=== PATIENT | male | born 1945 | race Caucasian/White ===

== ENCOUNTER 2017-11-06 12:28 | Inpatient (IN) | payer MEDICARE, MEDICAID, SELFPAY ==
[2017-11-10 19:21] VITALS: BMI 32.7
[2017-11-11 04:00] VITALS: BP 152/71; PULSE 82; RESP 22; TEMP 36.4; O2SAT 93
--- NOTE | 2017-11-11 07:25 | HMH.DCSUM ---
General - General Admission date: 11/06/17 Discharge date: 11/11/17 HPI HPI: 71 year old male with history of HTN, CAD, presented to the ER after awakening with difficulty speaking and ambulating. Patient would veer to the right when walking. By the time of presentation and completed work-up patient was outside the window for intervention for acute CVA. CT in ER was negative for hemorrhage. Patient was admitted for blood pressure monitoring and therapy evaluation by stroke team. Patient's symptoms did not improve after 24 hours and patient developed difficulty swallowing. Speech therapy recommended feeding tube due to repeated aspiration. On November 08 Dr. Barreto took the patient to the OR and placed a Peg tube. Dietitian was consulted and recommended tube feeds with Jevity at a goal rate of 72 mL's per hour. Tube feeds were started per protocol and patient progressed to goal rate and continue this until discharge. Patient was evaluated by physical therapy as well. Physical therapy felt like the patient would best be served by inpatient rehabilitation. On initial examination on the patient did have some right arm weakness. Right arm and leg weakness improved but patient remained unstable while walking. Patient's blood pressure medications were adjusted. At times patient's blood pressure still remained elevated. Patient was also started on Plavix 75 mg. Patient is a diabetic as well and he remained on metformin but insulin dosing was changed significantly while hospitalized due to hypoglycemia. Care management consult was placed and patient was accepted to [facility] for November 11. Patient's weekend was uneventful. On November 11 patient was transferred to [facility]. Objective Vital signs: Temp Pulse Resp BP Pulse Ox 97.5 F L 82 22 152/71 93 L 11/11/17 04:00 11/11/17 04:00 11/11/17 04:00 11/11/17 04:00 11/11/17 04:00 Results Labs on day of discharge: Labs from last 24 hours 11/10/17 11/10/17 11/10/17 20:13 17:04 06:01 WBC RBC Hgb Hct MCV RDW Plt Count MPV Gran % Gran # Lymphocytes % Monocytes % Eosinophils % Basophils % Lymphocytes # Monocytes # Eosinophils # Basophils # PUBS MCHC Sodium Potassium Chloride Carbon Dioxide BUN Creatinine Estimated Creat Clear Estimated GFR (MDRD) Glucose POC Glucose 193 H D 284 H D 208 H Calcium MCH 11/09/17 11/09/17 11/09/17 20:14 16:47 06:29 WBC RBC Hgb Hct MCV RDW Plt Count MPV Gran % Gran # Lymphocytes % Monocytes % Eosinophils % Basophils % Lymphocytes # Monocytes # Eosinophils # Basophils # PUBS MCHC Sodium Potassium Chloride Carbon Dioxide BUN Creatinine Estimated Creat Clear Estimated GFR (MDRD) Glucose POC Glucose 190 H 217 H 178 H Calcium MCH 11/08/17 11/08/17 11/08/17 19:57 16:30 11:39 WBC RBC Hgb Hct MCV RDW Plt Count MPV Gran % Gran # Lymphocytes % Monocytes % Eosinophils % Basophils % Lymphocytes # Monocytes # Eosinophils # Basophils # PUBS MCHC Sodium Potassium Chloride Carbon Dioxide BUN Creatinine Estimated Creat Clear Estimated GFR (MDRD) Glucose POC Glucose 151 H 176 H 176 H Calcium MCH 11/08/17 11/08/17 11/08/17 08:40 08:40 06:17 WBC 9.6 RBC 4.79 Hgb 14.1 Hct 44.0 MCV 91.9 RDW 14.1 Plt Count 289 MPV 8.2 Gran % 76.2 Gran # 7.3 Lymphocytes % 15.9 Monocytes % 5.1 Eosinophils % 2.3 Basophils % 0.6 Lymphocytes # 1.5 Monocytes # 0.5 Eosinophils # 0.2 Basophils # 0.1 PUBS MCHC 32.1 Sodium 141 Potassium 4.1 Chloride 107 Carbon Dioxide 27 BUN 13 Creatinine 0.9 E
--- NOTE | 2017-11-11 07:36 | P.DS_ITS ---
General - General Admission date: 11/06/17 Discharge date: 11/11/17 HPI HPI: 71 year old male with history of HTN, CAD, presented to the ER after awakening with difficulty speaking and ambulating. Patient would veer to the right when walking. By the time of presentation and completed work-up patient was outside the window for intervention for acute CVA. CT in ER was negative for hemorrhage. Patient was admitted for blood pressure monitoring and therapy evaluation by stroke team. Patient's symptoms did not improve after 24 hours and patient developed difficulty swallowing. Speech therapy recommended feeding tube due to repeated aspiration. On November 08 Dr. Barreto took the patient to the OR and placed a Peg tube. Dietitian was consulted and recommended tube feeds with Jevity at a goal rate of 72 mL's per hour. Tube feeds were started per protocol and patient progressed to goal rate and continue this until discharge. Patient was evaluated by physical therapy as well. Physical therapy felt like the patient would best be served by inpatient rehabilitation. On initial examination on the patient did have some right arm weakness. Right arm and leg weakness improved but patient remained unstable while walking. Patient's blood pressure medications were adjusted. At times patient's blood pressure still remained elevated. Patient was also started on Plavix 75 mg. Patient is a diabetic as well and he remained on metformin but insulin dosing was changed significantly while hospitalized due to hypoglycemia. Care management consult was placed and patient was accepted to [facility] for November 11. Patient's weekend was uneventful. On November 11 patient was transferred to [facility]. Objective Vital signs: Temp Pulse Resp BP Pulse Ox 97.5 F L 82 22 152/71 93 L 11/11/17 04:00 11/11/17 04:00 11/11/17 04:00 11/11/17 04:00 11/11/17 04:00 Results Labs on day of discharge: Labs from last 24 hours 11/10/17 11/10/17 11/10/17 20:13 17:04 06:01 WBC RBC Hgb Hct MCV RDW Plt Count MPV Gran % Gran # Lymphocytes % Monocytes % Eosinophils % Basophils % Lymphocytes # Monocytes # Eosinophils # Basophils # PUBS MCHC Sodium Potassium Chloride Carbon Dioxide BUN Creatinine Estimated Creat Clear Estimated GFR (MDRD) Glucose POC Glucose 193 H D 284 H D 208 H Calcium MCH 11/09/17 11/09/17 11/09/17 20:14 16:47 06:29 WBC RBC Hgb Hct MCV RDW Plt Count MPV Gran % Gran # Lymphocytes % Monocytes % Eosinophils % Basophils % Lymphocytes # Monocytes # Eosinophils # Basophils # PUBS MCHC Sodium Potassium Chloride Carbon Dioxide BUN Creatinine Estimated Creat Clear Estimated GFR (MDRD) Glucose POC Glucose 190 H 217 H 178 H Calci
--- NOTE | 2017-11-11 07:42 | PC.NURSE ---
C/O ABDOMINAL PAIN, ADMINISTERED PRN MEDICATION PER JAN FOR PAIN, ON REASSESSMENT, PT NOTED SLEEPING. SLURRED SPEECH NOTED, PERRLA NOTED, STOCK OR DELIVERY CLERK EQUAL, NO FACIAL DEFICITS NOTED. ASSISTANCE X1 REQUIRED FOR ADLS. PT IS NONCOMPLIANT AT TIMES, SAFETY DEVICE APPLIED T/O SHIFT. PT REMAINED A&OX3 T/O SHIFT. PEG TUBE NOTED IN LUQ, DRESSING CDI, NO S/S OF INFECTION. RESIDUALS PERFORMED Q4H T/O SHIFT. 2000 RESIDUAL: 0 ML; 0000 RESIDUAL: 0 ML; 0400 RESIDUAL 25 ML. HOB REMAINED ELEVATED >45 DEGREE ANGLE. VSS. WILL CONTINUE TO MONITOR.
--- NOTE | 2017-11-11 08:00 | PC.NURSE ---
ORAL CARE PERFORMED Q2H.
[2017-11-11 08:40] VITALS: PULSE 80
[2017-11-11 09:00] VITALS: BP 201/77; PULSE 98; RESP 20
[2017-11-12 10:18] LABS: POC Glucose,Bedside 241 mg/dL
== END 2017-11-11 15:40 | DRG 65 ==
PROVIDERS: Admitting Provider Family Medicine; Emergency Provider Emergency Medicine; Visit Provider Family Medicine
DX: G81.94 Hemiplegia, unspecified affecting left nondominant side (principal); E11.9 Type 2 diabetes mellitus without complications; I69.322 Dysarthria following cerebral infarction; I63.9 Cerebral infarction, unspecified; I69.391 Dysphagia following cerebral infarction; I69.393 Ataxia following cerebral infarction; I10 Essential (primary) hypertension; Z79.4 Long term (current) use of insulin; Z95.5 Presence of coronary angioplasty implant and graft; R47.89 Other speech disturbances
CPT/HCPCS: 43246; 36415; 70450; 71020; 72040; 74230; 80048; 80053; 80162; 82009; 82550; 82553; 82947; 82962; 83036; 84484; 85025; 92507; 92610; 92611; 93005; 93041; 93306; 93880; 94760; 96105; 97116; 97162; 97165; 97535; 99284; J2270

== ENCOUNTER 2018-05-13 14:43 | Inpatient (IN) ==
[2018-05-13 17:04] LABS: Basophils % 0.5 % (0.1-2.0); Eosinophils # 0.3 K/mm3 (0.0-0.4); Eosinophils % 4.4 % (0.1-12.0); Hematocrit 36.5 % (42.0-52.0); Hemoglobin 10.7 g/dL (14.1-18.0); Lymphocytes # 2.1 K/mm3 (0.7-4.5); Lymphocytes % 28.7 K/mm3 (10-50); Mean Corpuscular HGB Conc 29.4 g/dL (31.8-35.4); Mean Corpuscular Hemoglobin 24.9 pg (27.0-31.2); Mean Corpuscular Volume 84.6 fl (80-94); Mean Platelet Volume 8.1 fl (7.4-10.4); Monocytes # 0.4 K/mm3 (0.1-1.0); Monocytes % 5.8 % (1.7-9.3); Neutrophils # 4.5 K/mm3 (1.8-7.8); Neutrophils % 60.7 % (37.0-80.0); Platelet Count 368 K/mm3 (142-424); Red Blood Count 4.31 M/mm3 (4.60-6.20); Red Cell Distribution Width 15.1 % (11.5-17.5); White Blood Count 7.4 K/mm3 (4.8-10.8)
[2018-05-13 17:16] LABS: Albumin Level 3.1 gm/dL (3.4-5.0); Albumin/Globulin Ratio 0.8 (1.1-1.8); Anion Gap 10.8 mEq/L (5-15); Bilirubin,Total 0.4 mg/dL (0.2-1.0); Calcium 8.6 mg/dL (8.5-10.1); Globulin 3.9 gm/dl (1.3-3.2); Potassium 3.8 mmoL/L (3.5-5.1)
--- NOTE | 2018-05-14 07:15 | Progress Note ---
Internal Medicine - PN: Subj *Date: 05/14/18 *Time: 07:13 Interval history: Patient was admitted yesterday afternoon with worsening dysphagia. Inability to swallow even liquids had developed over the last 3-4 days. Patient denies any other symptoms to suggest recurrence of stroke. He was admitted and started on D5 half-normal saline with potassium. He is also being given Levsin for oral secretions. Exam Vital signs and Labs for Last 24 Hours: Temp Pulse Resp BP Pulse Ox 97.9 F 74 16 123/59 94 L 05/14/18 04:00 05/14/18 04:00 05/14/18 04:00 05/14/18 04:00 05/14/18 04:00 Laboratory Results - last 24 hr 05/13/18 16:44: POC Glucose 131 H 05/13/18 16:50: Sodium 143, Potassium 3.8, Chloride 108 H, Carbon Dioxide 28, Anion Gap 10.8, BUN 16, Creatinine 1.04, Estimated Creat Clear 80, Estimated GFR 70, Est GFR ( Amer) 85, Glucose 155 H, Calcium 8.6, Total Bilirubin 0.4, AST 18, ALT 15, Alkaline Phosphatase 82, Total Protein 7.0, Albumin 3.1 L, Globulin 3.9 H, Albumin/Globulin Ratio 0.8 L 05/13/18 16:50: WBC 7.4, RBC 4.31 L, Hgb 10.7 L, Hct 36.5 L, MCV 84.6, MCH 24.9 L, MCHC 29.4 L, RDW 15.1, Plt Count 368, MPV 8.1, Neut % (Auto) 60.7, Lymph % ( Auto) 28.7, Cobb % (Auto) 5.8, Eos % (Auto) 4.4, Baso % (Auto) 0.5, Neut # (Auto ) 4.5, Lymph # (Auto) 2.1, Cobb # (Auto) 0.4, Eos # (Auto) 0.3, Baso # (Auto) 0.0 05/13/18 20:24: POC Glucose 166 H 05/14/18 06:04: POC Glucose 188 H I & O for Last 24 hours: Intake & Output 05/11/18 05/12/18 05/13/18 05/14/18 11:59 11:59 11:59 11:59 Intake Total 0 / 0 Output Total 475 / 475 Balance -475 / -475 Weight 190 lb Narrative: He appears at baseline. His speech is unchanged. Lungs are clear to auscultation. Heart has a regular rate and rhythm. Abdomen is soft, nontender , nondistended. 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 Continue IV fluids 2. Surgical consult for PEG tube 3. CT head this morning to rule out recurrent stroke
[2018-05-14 07:21] LABS: Basophils % 0.6 % (0.1-2.0); Eosinophils # 0.3 K/mm3 (0.0-0.4); Eosinophils % 5.4 % (0.1-12.0); Hematocrit 36.3 % (42.0-52.0); Hemoglobin 10.5 g/dL (14.1-18.0); Lymphocytes # 1.8 K/mm3 (0.7-4.5); Lymphocytes % 29.9 K/mm3 (10-50); Mean Corpuscular Hemoglobin 24.6 pg (27.0-31.2); Mean Corpuscular Volume 85.1 fl (80-94); Mean Platelet Volume 7.9 fl (7.4-10.4); Monocytes # 0.4 K/mm3 (0.1-1.0); Monocytes % 6.6 % (1.7-9.3); Neutrophils # 3.4 K/mm3 (1.8-7.8); Neutrophils % 57.5 % (37.0-80.0); Platelet Count 306 K/mm3 (142-424); Red Blood Count 4.27 M/mm3 (4.60-6.20); Red Cell Distribution Width 15.1 % (11.5-17.5)
[2018-05-14 07:39] LABS: Albumin Level 2.9 gm/dL (3.4-5.0); Albumin/Globulin Ratio 0.8 (1.1-1.8); Anion Gap 10.4 mEq/L (5-15); Bilirubin,Total 0.4 mg/dL (0.2-1.0); Calcium 8.6 mg/dL (8.5-10.1); Globulin 3.7 gm/dl (1.3-3.2); Potassium 3.4 mmoL/L (3.5-5.1); Total Protein,Serum 6.6 gm/dL (6.4-8.2)
--- NOTE | 2018-05-14 09:19 | Pharmacy Consult Notes ---
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
--- NOTE | 2018-05-15 07:15 | Progress Note ---
Internal Medicine - PN: Subj *Date: 05/15/18 *Time: 07:13 Interval history: No change in patient's condition over the last 24 hours. He remains n.p.o. Surgery has been consulted and in discussing his case with him yesterday he needs the Plavix to be adequately out of his system before proceeding with PEG tube placement. An NG tube is going to be placed today for tube feedings. We will investigate the possibility of discharging the patient to assisted facility and then returning next week for definitive placement of PEG tube. If this cannot be accomplished and the patient will be kept in the hospital until Plavix is adequately out of his system which at this point would estimated to be May 18. Exam Vital signs and Labs for Last 24 Hours: Temp Pulse Resp BP Pulse Ox 98.1 F 87 20 150/85 95 05/15/18 04:56 05/15/18 04:56 05/15/18 04:56 05/15/18 04:56 05/15/18 04:56 Laboratory Results - last 24 hr 05/14/18 06:35: WBC 6.0, RBC 4.27 L, Hgb 10.5 L, Hct 36.3 L, MCV 85.1, MCH 24.6 L, MCHC 29.0 L, RDW 15.1, Plt Count 306, MPV 7.9, Neut % (Auto) 57.5, Lymph % ( Auto) 29.9, Mcclain % (Auto) 6.6, Eos % (Auto) 5.4, Baso % (Auto) 0.6, Neut # (Auto ) 3.4, Lymph # (Auto) 1.8, Mcclain # (Auto) 0.4, Eos # (Auto) 0.3, Baso # (Auto) 0.0 05/14/18 06:35: Sodium 142, Potassium 3.4 L, Chloride 108 H, Carbon Dioxide 27, Anion Gap 10.4, BUN 10 D, Creatinine 0.82 D, Estimated Creat Clear 83, Estimated GFR 93, Est GFR ( Amer) 112 D, Glucose 196 H D, Calcium 8.6, Total Bilirubin 0.4, AST 16, ALT 14, Alkaline Phosphatase 78, Total Protein 6.6 , Albumin 2.9 L, Globulin 3.7 H, Albumin/Globulin Ratio 0.8 L 07/04/18 11:08: POC Glucose 171 H 07/04/18 16:25: POC Glucose 151 H 05/14/18 20:16: POC Glucose 163 H 05/15/18 06:22: POC Glucose 191 H I & O for Last 24 hours: Intake & Output 05/12/18 05/13/18 05/14/18 05/15/18 11:59 11:59 11:59 11:59 Intake Total 0 / 0 2254 / 2254 Output Total 475 / 475 2945 / 2945 Balance -475 / -475 -691 / -691 Weight 190 lb 188 lb 6 oz - Constitutional no acute distress Assessment and Plan (1) 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 Place NG tube with nutrition consult to begin tube feedings via NG.
--- NOTE | 2018-05-15 09:16 | Consult Report ---
*Admission Date: 05/13/18 *Chief complaint: Feeding difficulty *History of present illness: This is a 72-year-old gentleman seen in consultation from Dr. Avila for likely feeding tube placement. He is status post CVA and presents with increased feeding difficulty. He had a PEG placed after his stroke; however, he improved with regard to swallowing and was able to tolerate p.o. feeding. His PEG was subsequently removed. Over the past few days he has had increased difficulty swallowing and has "failed his swallowing study". Review of Systems - *Cardiovascular Denies chest pain - Hematologic/Lymphatic Denies easy bleeding [facility] History Medical History: Reports:: Coronary Artery Disease, Diabetes Mellitus Type 2, Heart Murmur, Hyperlipidemia, MRSA Denies:: Cancer, Diabetes Mellitus Type 1 Other Medical History: Reports: Arthritis (rheumatoid), Hoarseness Laterality Cases: Bilateral: Arthroscopy Shoulder Other Surgeries: Yes: Cardiac Catheterization, Coronary Stent Amputation: No Fractures: No - *Social History Educational Level: Completed High School Smoking Status: Current every day smoker Tobacco Type: cigarettes # Packs/Day (cigarettes): 1 Alcohol Intake: former Occupational Status: retired Housing: apartment Household Members: none - Psychiatric History Expresses thoughts of harming self/others: None Suicide Plan Description: No Plan *Family Hx:: Anemia, Coronary Artery Disease, Diabetes, Heart Attack, Hyperlipidemia, Hypertension Meds Home Medications Medication Instructions Recorded Confirmed Type Albuterol Sulfate [Proventil-HFA 2 puffs INHALATION Q4HP PRN 11/10/17 05/13/18 History 90mcg/puff Inh] Budesonide/Formoterol Fumarate 2 puffs INHALATION BID 11/10/17 05/13/18 History [Symbicort 160-4.5 Mcg Inhaler] Fenofibrate Nanocrystallized 145 mg PO DAILY 11/10/17 05/13/18 History [Fenofibrate] Metformin HCl [Metformin 500mg 1,000 mg PO BID 11/10/17 05/13/18 History Tablet] Oxycodone HCl/Acetaminophen 1 tab PO QID 11/10/17 05/13/18 History [Percocet 10-325 mg Tab] Carvedilol [Carvedilol 25mg Tab] 25 mg PO BID 11/11/17 05/13/18 History Amlodipine Besylate [Norvasc 5mg 5 mg PO BID 05/13/18 05/13/18 History tablet] Clopidogrel Bisulfate [Plavix 75mg 75 mg PO DAILY 05/13/18 05/14/18 History Tab] Digoxin 0.0625 mg PO DAILY 05/13/18 05/13/18 History Esomeprazole Magnesium 40 mg PO DAILY 05/13/18 05/13/18 History Fluticasone Propionate [Flonase 1 spray NOSTRIL-B DAILY 05/13/18 05/13/18 History 50mcg nasal spray 16gm] Lisinopril [Lisinopril 20mg Tab] 20 mg PO BID 05/13/18 05/13/18 History raNITIdine HCl [Ranitidine HCl] 150 mg PO BID PRN 05/13/18 05/13/18 History Gabapentin [Gabapentin 300mg Cap] 300 mg PO TID 05/14/18 05/14/18 History Insulin Detemir [Levemir 10 units SQ DAILY 05/14/18 05/14/18 History 100units/mL 3mL flexpen] Allergies Allergy/AdvReac Type Severity Reaction Status Date / Time diclofenac [From VOLTAREN] Allergy Unknown I-RASH Verified 05/13/18 16:29 rosuvastatin [From CRESTOR] Allergy Unknown I-RASH Verified 05/13/18 16:29 Exam Vital signs and Labs for Last 24 Hours: Temp Pulse Resp BP Pulse Ox 97.9 F 101 H 20 149/84 94 L 05/15/18 07:33 05/15/18 07:33 05/15/18 07:33 05/15/18 07:33 05/15/18 07:33 Laboratory Results - last 24 hr 05/14/18 11:08: POC Glucose 171 H 05/14/18 16:25: POC Glucose 151 H 05/14/18 20:16: POC Glucose 163 H 05/15/18 06:22: POC Glucose 191 H I & O for Last 24 hours: Intake & Output 05/12/18 05/13/18 05/14/18 05/15/18 11:59 11:59 11:59 11:59 Intake Total 0 / 0 2254 / 2254 Output Total 475 / 475 2945 / 2945 Balance -475 / -475 -691 / -691 Weight 190 lb 188 lb 6 oz - Constitutional no acute distress - *Routine Respiratory Exam Absent: respiratory distress - *Routine Abdominal Exam Present: soft. 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
--- NOTE | 2018-05-16 06:43 | Progress Note ---
Internal Medicine - PN: Subj *Date: 05/16/18 *Time: 06:42 Interval history: Patient's only complaint is his NG tube which we have used to start some tube feedings. He has pulled his NG out this morning. According to nursing staff this was done purposefully. Exam Vital signs and Labs for Last 24 Hours: Temp Pulse Resp BP Pulse Ox 98.0 F 72 16 154/81 93 L 05/16/18 04:00 05/16/18 04:00 05/16/18 04:00 05/16/18 04:00 05/16/18 04:00 Laboratory Results - last 24 hr 05/15/18 11:01: POC Glucose 196 H 05/15/18 16:39: POC Glucose 159 H 05/15/18 21:21: POC Glucose 177 H I & O for Last 24 hours: Intake & Output 05/13/18 05/14/18 05/15/18 05/16/18 11:59 11:59 11:59 11:59 Intake Total 0 / 0 2254 / 2254 1362 / 1362 Output Total 475 / 475 2945 / 2945 1475 / 1475 Balance -475 / -475 -691 / -691 -113 / -113 Weight 190 lb 188 lb 6 oz - Constitutional no acute distress - *Routine Respiratory Exam Present: CTA bilaterally - *Routine Cardiovascular Exam Present: RRR Assessment and Plan (1) 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 We are waiting for Plavix to clear his system to proceed with placement of PEG tube.
--- NOTE | 2018-05-16 06:50 | Progress Note ---
Subjective Patient reports: other (unable to maintain feeding tube in place) Exam Vital signs and Labs for Last 24 Hours: Temp Pulse Resp BP Pulse Ox 98.0 F 72 16 154/81 93 L 05/16/18 04:00 05/16/18 04:00 05/16/18 04:00 05/16/18 04:00 05/16/18 04:00 Laboratory Results - last 24 hr 05/15/18 11:01: POC Glucose 196 H 05/15/18 16:39: POC Glucose 159 H 05/15/18 21:21: POC Glucose 177 H 05/16/18 06:29: POC Glucose 174 H I & O for Last 24 hours: Intake & Output 05/13/18 05/14/18 05/15/18 05/16/18 11:59 11:59 11:59 11:59 Intake Total 0 / 0 2254 / 2254 1362 / 1362 Output Total 475 / 475 2945 / 2945 1925 / 1925 Balance -475 / -475 -691 / -691 -563 / -563 Weight 190 lb 188 lb 6 oz - Constitutional no acute distress - *Routine Respiratory Exam Absent: respiratory distress Progress Note: A&P (1) 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
--- NOTE | 2018-05-17 06:59 | Progress Note ---
Internal Medicine - PN: Subj *Date: 05/17/18 *Time: 06:57 Interval history: Patient has no complaints this morning. He is scheduled for placement of PEG tube later this morning. Exam Vital signs and Labs for Last 24 Hours: Temp Pulse Resp BP Pulse Ox 97.4 F L 89 20 144/79 95 05/17/18 03:40 05/17/18 03:40 05/17/18 03:40 05/17/18 03:40 05/17/18 03:40 Laboratory Results - last 24 hr 05/16/18 11:09: POC Glucose 164 H 05/16/18 16:05: POC Glucose 117 H 05/16/18 21:31: POC Glucose 167 H I & O for Last 24 hours: Intake & Output 05/14/18 05/15/18 05/16/18 05/17/18 11:59 11:59 11:59 11:59 Intake Total 0 / 0 2254 / 2254 1362 / 1362 3017 / 3017 Output Total 475 / 475 2945 / 2945 1925 / 1925 550 / 550 Balance -475 / -475 -691 / -691 -563 / -563 2467 / 2467 Weight 190 lb 188 lb 6 oz 188 lb Narrative: He appears well. Heart has a regular rate and rhythm. Lungs are clear. 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 Start tube feeds later today. Once he is at goal rate will anticipate discharge to assisted facility
--- NOTE | 2018-05-17 07:12 | Progress Note ---
Subjective Patient reports: no new complaints Exam Vital signs and Labs for Last 24 Hours: Temp Pulse Resp BP Pulse Ox 97.4 F L 89 20 144/79 95 05/17/18 03:40 05/17/18 03:40 05/17/18 03:40 05/17/18 03:40 05/17/18 03:40 Laboratory Results - last 24 hr 05/16/18 11:09: POC Glucose 164 H 05/16/18 16:05: POC Glucose 117 H 05/16/18 21:31: POC Glucose 167 H I & O for Last 24 hours: Intake & Output 05/14/18 05/15/18 05/16/18 05/17/18 11:59 11:59 11:59 11:59 Intake Total 0 / 0 2254 / 2254 1362 / 1362 3017 / 3017 Output Total 475 / 475 2945 / 2945 1925 / 1925 550 / 550 Balance -475 / -475 -691 / -691 -563 / -563 2467 / 2467 Weight 190 lb 188 lb 6 oz 188 lb - Constitutional no acute distress - *Routine Respiratory Exam Absent: respiratory distress - *Routine Abdominal Exam Present: soft Progress Note: A&P (1) 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
--- NOTE | 2018-05-17 08:34 | Procedure Note ---
- Procedure: Date: 05/17/18 Procedure Performed:: Percutaneous endoscopic gastrostomy tube placement Indications:: Feeding difficulty status post stroke Performing Provider:: Gagandeep Barreto MD Referring Provider:: Dr. Avila Sedation:: MAC Procedure:: After informed consent was obtained, the patient was taken to the endoscopy suite. Monitored anesthesia care ensued and he was maintained in a supine position. The gastroscope was advanced. The stomach was entered. After appropriate insufflation, transillumination and impulse were appreciated. The left upper quadrant was prepped and draped in a sterile fashion. After infiltration of local anesthetic a small incision was made at the site of prior gastrostomy tube. A guidewire was placed under direct visualization. The snare was then retrieved and attached to the tube. The tube was then drawn through in an antegrade fashion and secured at 3 cm. The gastroscope was readvanced. The bumper was in good position. No active bleeding was noted. Easy rotation confirmed. The tube was maintained to drainage and an abdominal binder was secured. Findings:: Secured at 3 cm Recommendations:: Abdominal binder Tube to drain bag Tube to be utilized for medications after 4 hours and for tube feeds after 12 hours Complications:: No immediate Estimated blood obtained (mL): 5
--- NOTE | 2018-05-17 09:18 | Progress Note ---
[facility] Anesthesia Checklist - Patient Identification Patient Identification: Arm Band - Structural Data Admitted From: Inpatient Planned Operative Procedure/s: PEG tube placement Consent for Planned Operative Procedure(s) Verified: Yes Verified Documents: Surgical Consent, History and Physical - NPO Status Verified Time NPO: 00:00 - Additional verifications Anesthesia Reactions: No - Airway Assessment C-Spine Mobility Assessed: Yes (mp3) TMJ Mobility Assessed: Yes Dentition: Poor Dentition - Neurological Assessment Level of Consciousness: Awake, Alert - Anesthesia Plan Anesthesia Risk discussed: Yes Anesthesia Plan: Verified ASA Class: III Anesthesia Type: MAC [facility] Anesthesia HX I have reviewed the patient's past medical history: Yes Medical History: Reports:: Coronary Artery Disease, Diabetes Mellitus Type 2, Heart Murmur, Hyperlipidemia, MRSA Denies:: Cancer, Diabetes Mellitus Type 1 Other Medical History: Reports: Arthritis (rheumatoid), Hoarseness Laterality Cases: Bilateral: Arthroscopy Shoulder Other Surgeries: Yes: Cardiac Catheterization, Coronary Stent Amputation: No Fractures: No *Family Hx:: Anemia, Coronary Artery Disease, Diabetes, Heart Attack, Hyperlipidemia, Hypertension
--- NOTE | 2018-05-18 06:48 | Progress Note ---
Internal Medicine - PN: Subj *Date: 05/18/18 *Time: 06:47 Interval history: Patient has no complaints this morning. Attempts to get tube feeds started have stalled after patient had high residuals. Currently tube feedings are on hold and will be restarted within a few hours. Patient denies any significant changes in how he feels. Pain is being controlled with intravenous morphine. Exam Vital signs and Labs for Last 24 Hours: Temp Pulse Resp BP Pulse Ox 97.6 F 85 20 153/77 93 L 05/18/18 04:00 05/18/18 04:00 05/18/18 04:00 05/18/18 04:00 05/18/18 04:00 Laboratory Results - last 24 hr 05/17/18 06:07: POC Glucose 177 H 05/17/18 11:17: POC Glucose 206 H 05/17/18 16:09: POC Glucose 168 H 05/17/18 20:03: POC Glucose 183 H 05/18/18 05:02: POC Glucose 219 H I & O for Last 24 hours: Intake & Output 05/15/18 05/16/18 05/17/18 05/18/18 11:59 11:59 11:59 11:59 Intake Total 2254 / 2254 1362 / 1362 3017 / 3017 3724 / 3724 Output Total 2945 / 2945 1925 / 1925 550 / 550 1025 / 1025 Balance -691 / -691 -563 / -563 2467 / 2467 2699 / 2699 Weight 188 lb 6 oz 188 lb 191 lb Narrative: He is in no distress. Lungs are clear. Heart has regular rate and rhythm. 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 If unsuccessful Reglan will be added as a prokinetic agent
--- NOTE | 2018-05-18 07:41 | Progress Note ---
Subjective Patient reports: other (feels "fine") Exam Vital signs and Labs for Last 24 Hours: Temp Pulse Resp BP Pulse Ox 97.6 F 85 20 153/77 93 L 05/18/18 04:00 05/18/18 04:00 05/18/18 04:00 05/18/18 04:00 05/18/18 04:00 Laboratory Results - last 24 hr 05/17/18 06:07: POC Glucose 177 H 05/17/18 11:17: POC Glucose 206 H 05/17/18 16:09: POC Glucose 168 H 05/17/18 20:03: POC Glucose 183 H 05/18/18 05:02: POC Glucose 219 H I & O for Last 24 hours: Intake & Output 05/15/18 05/16/18 05/17/18 05/18/18 11:59 11:59 11:59 11:59 Intake Total 2254 / 2254 1362 / 1362 3017 / 3017 3724 / 3724 Output Total 2945 / 2945 1925 / 1925 550 / 550 1025 / 1025 Balance -691 / -691 -563 / -563 2467 / 2467 2699 / 2699 Weight 188 lb 6 oz 188 lb 191 lb - Constitutional no acute distress - *Routine Abdominal Exam Present: soft (PEG stable at 3cm. Good rotation. No active bleeding. 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 TFs as per primary service Current Visit: Yes
--- NOTE | 2018-05-19 06:31 | Progress Note ---
Subjective Patient reports: no new complaints, other (at TF rate goal (nsg checking residual)...no nausea at this time) Exam Vital signs and Labs for Last 24 Hours: Temp Pulse Resp BP Pulse Ox 98.3 F 68 20 132/61 93 L 05/19/18 04:00 05/19/18 04:00 05/19/18 04:00 05/19/18 04:00 05/19/18 04:00 Laboratory Results - last 24 hr 05/18/18 11:11: POC Glucose 196 H 05/18/18 16:34: POC Glucose 192 H 05/18/18 21:12: POC Glucose 137 H I & O for Last 24 hours: Intake & Output 05/16/18 05/17/18 05/18/18 05/19/18 11:59 11:59 11:59 11:59 Intake Total 1362 / 1362 3017 / 3017 3724 / 3724 2578 / 2578 Output Total 1925 / 1925 550 / 550 1325 / 1325 975 / 975 Balance -563 / -563 2467 / 2467 2399 / 2399 1603 / 1603 Weight 188 lb 191 lb 192 lb 8 oz - Constitutional no acute distress - *Routine Respiratory Exam Absent: respiratory distress - *Routine Abdominal Exam Present: soft Progress Note: A&P (1) Dysphagia as late effect of cerebral aneurysm Status: Acute Assessment and plan: continue TFs as per primary service Current Visit: Yes
--- NOTE | 2018-05-19 07:16 | Progress Note ---
Internal Medicine - PN: Subj *Date: 05/19/18 *Time: 07:14 Interval history: Patient had his tube feeds advanced to his goal rate of 79 mL's per hour and is tolerating this at this time. Care management is awaiting word on prison facility placement. Exam Vital signs and Labs for Last 24 Hours: Temp Pulse Resp BP Pulse Ox 98.3 F 68 20 132/61 93 L 05/19/18 04:00 05/19/18 04:00 05/19/18 04:00 05/19/18 04:00 05/19/18 04:00 Laboratory Results - last 24 hr 05/18/18 11:11: POC Glucose 196 H 05/18/18 16:34: POC Glucose 192 H 05/18/18 21:12: POC Glucose 137 H 05/19/18 06:22: POC Glucose 191 H I & O for Last 24 hours: Intake & Output 05/16/18 05/17/18 05/18/18 05/19/18 11:59 11:59 11:59 11:59 Intake Total 1362 / 1362 3017 / 3017 3724 / 3724 2578 / 2578 Output Total 1925 / 1925 550 / 550 1325 / 1325 1225 / 1225 Balance -563 / -563 2467 / 2467 2399 / 2399 1353 / 1353 Weight 188 lb 191 lb 192 lb 8 oz - Constitutional no acute distress Assessment and Plan (1) Dysphagia as late effect of cerebral aneurysm Current visit: Yes Status: Acute Category: Medical Code(s): I69.891 - Dysphagia following other cerebrovascular disease - Assessment and plan all Dx Assessment and Plan for all problems:: As long as patient is able to tolerate his tube feeds at goal rate today in nursing facility has been secured for the patient plan will be to discharge tomorrow
--- NOTE | 2018-05-20 07:24 | Discharge Summary ---
General - General Admission date:: 05/13/18 Discharge date: 05/20/18 HPI HPI: This is a 72-year-old gentleman seen in consultation from Dr. Avila for likely feeding tube placement. He is status post CVA and presents with increased feeding difficulty. He had a PEG placed after his stroke; however, he improved with regard to swallowing and was able to tolerate p.o. feeding. His PEG was subsequently removed. Over the past few days he has had increased difficulty swallowing and has "failed his swallowing study". Hospital Course Hospital Course: Patient was admitted and Plavix was held. Once Plavix had adequately been cleared from his system patient underwent placement of PEG tube by Dr. Treadwell on May 17. Postoperatively tube feeds were started. The first 24 hours of tube feeds patient had high residuals even at low volumes and tube feeds were frequently held. On about 2 days postop patient began tolerating tube feeds better with little to no residual until he was advanced to his goal rate on Glucerna of 79 mL's per hour. Once patient was tolerating tube feeds search for placement was begun. Patient was accepted by [facility]. Repeat CCCT scan was negative for recurrent or enlarging infarct. Mental Status: average Rehab Potential: fair Prognosis: fair Objective Vital signs: Temp Pulse Resp BP Pulse Ox 97.8 F 68 18 177/74 92 L 05/20/18 04:00 05/20/18 04:00 05/20/18 04:00 05/20/18 04:00 05/20/18 04:00 Results Labs on day of discharge: Labs from last 24 hours 05/20/18 05/19/18 05/19/18 06:17 20:36 16:24 POC Glucose 204 H 167 H 185 H 05/19/18 10:56 POC Glucose 194 H DS: Diagnosis - Discharge Diagnosis (1) Dysphagia as late effect of cerebral aneurysm Status: Acute Discharge Plan - Patient Discharge Instructions ACTIVITY: Continue current activity DIET: continue same diet, NPO - Follow up Plan Disposition: [facility] Home Medications: Home Medications Medication Instructions Recorded Confirmed Type Albuterol Sulfate [Proventil-HFA 2 puffs INHALATION Q4HP PRN 11/10/17 05/13/18 History 90mcg/puff Inh] Budesonide/Formoterol Fumarate 2 puffs INHALATION BID 11/10/17 05/13/18 History [Symbicort 160-4.5 Mcg Inhaler] Fenofibrate Nanocrystallized 145 mg PO DAILY 11/10/17 05/13/18 History [Fenofibrate] Metformin HCl [Metformin 500mg 1,000 mg PO BID 11/10/17 05/13/18 History Tablet] Oxycodone HCl/Acetaminophen 1 tab PO QID 11/10/17 05/13/18 History [Percocet 10-325 mg Tab] Carvedilol [Carvedilol 25mg Tab] 25 mg PO BID 11/11/17 05/13/18 History Amlodipine Besylate [Norvasc 5mg 5 mg PO BID 05/13/18 05/13/18 History tablet] Clopidogrel Bisulfate [Plavix 75mg 75 mg PO DAILY 05/13/18 05/14/18 History Tab] Digoxin 0.0625 mg PO DAILY 05/13/18 05/13/18 History Esomeprazole Magnesium 40 mg PO DAILY 05/13/18 05/13/18 History Fluticasone Propionate [Flonase 1 spray NOSTRIL-B DAILY 05/13/18 05/13/18 History 50mcg nasal spray 16gm] Lisinopril [Lisinopril 20mg Tab] 20 mg PO BID 05/13/18 05/13/18 History raNITIdine HCl [Ranitidine HCl] 150 mg PO BID PRN 05/13/18 05/13/18 History Gabapentin [Gabapentin 300mg Cap] 300 mg PO TID 05/14/18 05/14/18 History Insulin Detemir [Levemir 10 units SQ DAILY 05/14/18 05/14/18 History 100units/mL 3mL flexpen] Prescriptions/Medication Reconciliation: New Oxycodone HCl/Acetaminophen [Oxycodone W/Apap 325mg Tablet] 1 each PO QID # 120 tab Continue Fenofibrate Nanocrystallized [Fenofibrate] 145 mg PO DAILY Oxycodone HCl/Acetaminophen [Percocet 10-325 mg Tab] 1 tab PO QID Budesonide/Formoterol Fumarate [Symbicort 160-4.5 Mcg Inhaler] 2 puffs INHALATION BID Metformin HCl [Metformin 500mg Tablet] 1,000 mg PO BID Carvedilol [Carvedilol 25mg Tab] 25 mg PO BID Digoxin 0.0625 mg PO DAILY Esomeprazole Magnesium 40 mg PO DAILY Lisinopril [Lisinopril 20mg Tab] 20 mg PO BID raNITIdine HCl [Ranitidine HCl] 150 mg PO BID PRN PRN Reason: GERD Gabapentin [Gabapentin 300mg Cap] 300 mg PO TID Insulin Detemir [Levemir 100units/mL 3mL flexpen] 10 units SQ DAILY Albuterol Sulfate [Proventil-HFA 90mcg/puff Inh] 2 puffs INHALATION Q4HP PRN PRN Reason: Shortness Of Breath Amlodipine Besylate [Norvasc 5mg tablet] 5 mg PO BID Fluticasone Propionate [Flonase 50mcg nasal spray 16gm] 1 spray NOSTRIL-B DAILY Clopidogrel Bisulfate [Plavix 75mg Tab] 75 mg PO DAILY
--- NOTE | 2018-05-20 08:06 | Progress Note ---
Subjective Patient reports: no new complaints Exam Vital signs and Labs for Last 24 Hours: Temp Pulse Resp BP Pulse Ox 98.0 F 65 18 127/59 95 05/20/18 07:26 05/20/18 07:26 05/20/18 07:26 05/20/18 07:26 05/20/18 07:26 Laboratory Results - last 24 hr 05/19/18 10:56: POC Glucose 194 H 05/19/18 16:24: POC Glucose 185 H 05/19/18 20:36: POC Glucose 167 H 05/20/18 06:17: POC Glucose 204 H I & O for Last 24 hours: Intake & Output 05/17/18 05/18/18 05/19/18 05/20/18 11:59 11:59 11:59 11:59 Intake Total 3017 / 3017 3724 / 3724 2578 / 2578 1305 / 1305 Output Total 550 / 550 1325 / 1325 1225 / 1225 1520 / 1520 Balance 2467 / 2467 2399 / 2399 1353 / 1353 -215 / -215 Weight 188 lb 191 lb 192 lb 8 oz 193 lb 6 oz - Constitutional no acute distress - *Routine Abdominal Exam Present: soft Comments: PEG stable and without sign of bleeding/infection Progress Note: A&P (1) 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 Current Visit: Yes
[2018-05-20 15:27] VITALS: BP 134/70
== END 2018-05-20 17:06 ==
LOC: 2ND 14:43
PROVIDERS: ADMIT Family Medicine; ATTEND Family Medicine

== ENCOUNTER → 2018-07-10 11:28 | Outpatient (CLI) | payer MEDICARE, MEDICAID, SELFPAY ==
--- NOTE | 2018-07-10 11:31 | FL_ITS ---
FL barium swallow modified: 07/10/2018 11:31 AM CLINICAL HISTORY: Dysphasia, prior stroke ORDERING PHYSICIAN: Emiliano Avila MD PATIENT AGE: 72 years Comparison: None TECHNIQUE: Patient administered varying consistencies of barium contrast, while viewed in lateral position under real-time fluoroscopy with cine recording. FLUOROSCOPY TIME: 3 minutes and 35 seconds The study was performed in conjunction with speech pathologist. Please see that report & recommendations. FINDINGS: Patient was given varying consistencies of barium. There was vestibular penetration with all liquids which persisted with chin tuck and head turn to the right. No destinee tracheal aspiration. IMPRESSION: Persistent vestibular penetration Please see speech pathologist report and recommendations.
--- NOTE | 2018-07-10 14:21 | HMH.SLMBS2 ---
Speech & Language Evaluation Speech/Language Mod Barium Swallow Start: 07/10/18 14:02 Freq: once Status: Complete Protocol: Document 07/10/18 14:02 ALICE (Rec: 07/10/18 14:19 ALICE [id number]) MBS Recommendations Diet Dietary Recommendations Dysphagia Mechanical Soft Thin Liquids Treatment/Strategies Strategy/Precaution Recommend Sitting Upright (90 deg) Supersupraglottic Swallow No Straw Small Bites and Sips Referrals/Other Other Recommendations Diet recommendations are: mechanical soft with thin liquids. Patient reports he will not be compliant at home. He currently has a PEG tube but does not receive nutrition from it. He eats soft foods and coughs a lot . Mod Barium Swallow Impressions Summary and Impressions Oral Phase Impression No Impairment (WFL) Pharyngeal Phase Impression Moderate Impairment Pharyngeal Phase Summary Deep penetration into laryngeal vestibule with all liquids. No aspiration noted. Chin tuck and head turn to right compensatory strategies attempted with no improvement. Implimented supersupraglottic swallow strategy to clear residue in laryngeal vestibule . Speech/Language MBS Assessment/Goals/Plan Assessment Date of Evaluation: 07/10/18 Evaluation Type Initial Certification Assessment/Problems Dysphagia; determine least restrictive diet Does Patient Qualify for Service Yes Qualify/Failure Comment Home Health referral for speech therapy recommended. Plan Pt/Guardian verbally ack understanding Yes of dx/prognosis/goals G -code Required Yes G-CODES ST Current Status [id number] ST Current Status Modifier CJ-At least 20% but less than 40% impaired, limited or restricted ST Goal Status [id number] ST Goal Status Modifier CI-At least 1% but less than 20% impaired, limited or restricted Mod Barium Swallow Setup Exam Setup Vashti Rodríguez Level of Consciousness Awake Alert
== END ==
PROVIDERS: PCP Family Medicine; Visit Provider Family Medicine
DX: I69.391 Dysphagia following cerebral infarction (principal)
CPT/HCPCS: 70371; 92611

== ENCOUNTER → 2018-08-11 11:48 | Outpatient (POV) | payer MEDICARE, MEDICAID, SELFPAY | PROVIDERS: Family Provider Family Medicine; PCP Family Medicine; Visit Provider Nurse Practitioner Acute Care | DX: Z00.00 Encounter for general adult medical examination without abnormal findings (principal) ==

== ENCOUNTER 2018-08-19 10:00 | Outpatient (RCR) | payer MEDICARE, MEDICAID, SELFPAY ==
--- NOTE | 2018-07-18 14:56 | HMH.SLDYSPHA ---
Speech & Language Evaluation Speech/Language Dysphagia Evaluation Start: 07/18/18 14:47 Freq: ONCE Status: Active Protocol: Document 07/18/18 14:47 ALICE (Rec: 07/18/18 14:56 ALICE [id number]) Dysphagia Assess/Goals/Plan Assessment Date of Evaluation: 07/18/18 Evaluation Type Initial Certification Assessment/Problems Dysphagia Does Patient Qualify for Service Yes Qualify/Failure Comment MBS results report the need for services to increase laryngeal elevation, vallecular clearing, and pharyngeal wall clearing Recommendations PHYSICIAN CERTIFICATION: The specified therapy services are required, authorized, and reviewed every 30 days. Pt will be seen # times/week 2 for # weeks 4 Diet Recommendations Dysphagia Mechanical Soft Liquid Type Recommendations Normal/Thin SL Swallow Guidelines High aspiration risk Dysphagia Swallow Precautions/Strategies Sitting Upright (90 deg) Supersupraglottic Swallow No Straw Liquids from Cup Small Bites and Sips Alternate Liquids/Solids Plan Anticipate reaching STG in # weeks 3 Anticipate reaching LTG in # weeks 4 Pt/Guardian verbally ack understanding Yes of dx/prognosis/goals G -code Required Yes G-CODES ST Current Status [id number] ST Current Status Modifier CJ-At least 20% but less than 40% impaired, limited or restricted ST Goal Status [id number] ST Goal Status Modifier CI-At least 1% but less than 20% impaired, limited or restricted STG-Asp Before/Tongue Control Produce a forceful fk/ at the end of 10 words in #trials STG-Asp During/Laryngeal Closure Use Valsalva maneuver w/wo cues in # 10 trials STG-Asp Aft/Laryn.Vest.-Elevation Use supraglottic swallow for specified 3 consitencies w/wo cues in #trials Produce i/in continuous fashion, incl. 20 fasetto in # trials Prison Goals Diet Soft diet with Liquids Thin Liquids Speech & Language HPI History Present Illness Rehab Services Assessed Speech therapy Language Primary Language Spanish General Information General Current Food Consistancy Dysphagia Mechanical Soft Thin Liquids Denture Type NA Patient Orientation Person Place
== END 2018-08-19 10:01 | disposition home or self-care (01) ==
LOC: ST 10:00
PROVIDERS: Family Provider Family Medicine; PCP Family Medicine; Visit Provider Family Medicine
DX: I69.328 Other speech and language deficits following cerebral infarction (principal)
CPT/HCPCS: 92507; 92610

== ENCOUNTER 2018-08-26 14:00 | Outpatient (RCR) | payer MEDICARE, MEDICAID, SELFPAY ==
--- NOTE | 2018-08-12 14:54 | HMH.OTOPEV ---
OT Inpatient Evaluation Rehab OT Outpatient Eval Start: 08/12/18 14:29 Freq: Status: Active Protocol: Document 08/12/18 14:29 DANNY (Rec: 08/12/18 14:54 [id number] Electronically Signed By Geovanna Ibarra OT 08/12/18 14:29 Outpatient Therapy Subjective History Subjective History Pt is a 72 year old male who reports to therapy for initial evaluation for weakness due to stroke. Pt had his stroke on November 05, 2017. After his stroke, pt went to [facility] for 30 days then to [facility] for 5 onths before returning home. Pt was home for ~ 1 month and pt's swallowing/talking worsened requiring a stay at [facility]. Pt has recently been home alone now for ~ 2 months. Pt lives at [facility] and reports he is independent with ADL's, but does require some assistance with IADL's. Pt's daughter comes twice a week and does his cleaning. However, pt reports he is still able to cook small meals . Pt claims right side was affected with stroke; pt was right hand dominant. Pt's AROM at all joints in bilateral UE's is the same as it was prior to his stroke. Pt does have decreased strength at several joints bilaterally in UE's. 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
== END 2018-08-26 14:01 | disposition home or self-care (01) ==
LOC: OT 14:00
PROVIDERS: Family Provider Family Medicine; PCP Family Medicine; Visit Provider Family Medicine
DX: R53.1 Weakness (principal)
CPT/HCPCS: 97112; 97166

== ENCOUNTER → 2018-08-27 09:05 | Outpatient (CLI) | payer MEDICARE, SELFPAY ==
--- NOTE | 2018-08-27 | US_ITS ---
US Arterial Ankle Brachial Ind History: Current smoker, hypertension, diabetes, bilateral claudication, decreased pulses left foot ORDERING PHYSICIAN: Emiliano Avila MD PATIENT AGE: 72 years TECHNIQUE: Segmental pressures obtained of both right and left leg. These are compared to brachial blood pressure to yield index at each level sampled including summary GABRIEL. The data sheets from the procedure are available in PACS FINDINGS Rest study only performed today No prior studies available for comparison. Blood pressures reported are in millimeters mercury. RIGHT LEG GABRIEL = 1.1. RIGHT LEG TBI=0.6 Brachial BP: 161 Thigh BP: 179 Calf BP: 167 Ankle PT: 170 Ankle DP : 175 Digit =97 LEFT LEG GABRIEL = 1.3 LEFT LEG TBI= 0.6 Brachial BPD: 157 Thigh BP: 192 Calf BP: 196 Ankle PT:212 Ankle DP: 175 Digit = 92 Pulses and waveforms: Normal IMPRESSION: The ABIs as reported above are within normal limits. Waveforms and pulses are also unremarkable. The TBIs are slightly low bilaterally which may indicate small vessel disease
== END ==
PROVIDERS: Family Provider Family Medicine; PCP Family Medicine; Visit Provider Family Medicine
DX: I73.9 Peripheral vascular disease, unspecified (principal); M79.89 Other specified soft tissue disorders
CPT/HCPCS: 93922

== ENCOUNTER 2018-09-08 11:49 | Inpatient (IN) ==
--- NOTE | 2018-09-08 11:27 | Emergency Department Note ---
ED Disposition Clinical Impression: Altered mental status Qualifiers: Altered mental status type: coma Coma depth: Abdiel coma 3-8 Coma timing: in the field (EMT or ambulance) Qualified Code(s): R40.2431 - Abdiel coma scale score 3-8, in the field [EMT or ambulance] Disposition: Admitted As Inpatient Condition on Discharge: Fair Time of Disposition: 15:43 - Critical Care Critical Care Time: Yes Attestation: On , the high probability of a clinically significant, sudden or life threatening deterioration of the following system(s) required my full and direct attention, intervention and personal management. The time I documented below is in addition to time spent performing reported procedures but includes the following listed in this critical care notation. Vital system(s) involved:: Central Nervous System My critical care processes included: Assessment & monitoring of V/S, Initial and Re-exams, Data Review/Interpretation, Coordinating Care, Medication Orders and management, Documentation Medical Decision Making - Medical Records Medical records reviewed: Yes: I reviewed the patient's medical records. - Sanya Inquiry Pt receiving controlled substance: No Sanya was queried for this patient: No Vital Signs: 09/08/18 11:16 09/08/18 11:42 09/08/18 12:16 Temperature 96.1 F L 96.1 F L Temperature Source Rectal Rectal Pulse Rate [Right Brachial] 91 H 91 H 91 H Respiratory Rate 16 16 17 Blood Pressure [Right Arm] 137/101 H 137/101 H 148/74 H Blood Pressure Mean [Right Arm] 113 113 98 Blood Pressure Source [Right Arm] Automatic Cuff Automatic Cuff Automatic Cuff Blood Pressure Position [Right Arm] Sitting Sitting Sitting 02 Sat by Pulse Oximetry 98 98 98 Oxygen Delivery Method Room Air Room Air 09/08/18 12:20 09/08/18 13:03 09/08/18 13:44 Temperature 98.1 F Temperature Source Rectal Rectal Pulse Rate [Right Brachial] 69 70 92 H Respiratory Rate 16 Blood Pressure [Right Arm] 109/68 L 181/77 H Blood Pressure Mean [Right Arm] 81 111 Blood Pressure Source [Right Arm] Automatic Cuff Automatic Cuff Blood Pressure Position [Right Arm] Sitting Sitting 02 Sat by Pulse Oximetry 98 97 96 Oxygen Delivery Method Room Air 09/08/18 14:40 Temperature Temperature Source Pulse Rate [Right Brachial] 107 H Respiratory Rate Blood Pressure [Right Arm] 130/75 Blood Pressure Mean [Right Arm] 93 Blood Pressure Source [Right Arm] Blood Pressure Position [Right Arm] 02 Sat by Pulse Oximetry 94 L Oxygen Delivery Method - Lab Data Lab results reviewed: Yes: I reviewed the patient's lab results. Lab Results 09/08/18 11:20: Urine Color Yellow, Urine Appearance Clear, Urine pH 6.0, Ur Specific [place] 1.020, Urine Protein Negative, Urine Glucose (UA) Trace, Urine Ketones Negative, Urine Blood Negative, Urine Nitrate Negative, Urine Bilirubin Negative, Urine Urobilinogen 0.2, Ur Leukocyte Esterase Negative, Urine RBC No ne, Urine WBC None, Ur Squamous Epith Cells None, Urine Bacteria Trace 09/08/18 11:20: Urine Opiates Screen Positive H, Urine Methadone Screen Negative, Ur Barbituates Screen Negative, Ur Phencyclidine Scrn Negative, Ur Amphetamines Screen Negative, U Benzodiazepines Scrn Negative, Urine Cocaine Screen Negative, U Marijuana (THC) Screen Negative 09/08/18 11:30: WBC 9.2 D, RBC 4.10 L, Hgb 10.8 L, Hct 35.2 L, MCV 85.9, MCH 26.3 L, MCHC 30.6 L, RDW 15.3, Plt Count 362, MPV 7.6, Neut % (Auto) 83.4 H, Lymph % (Auto) 11.3, [place] % (Auto) 4.8, Eos % (Auto) 0.2, Baso % (Auto) 0.2, Neut # (Auto) 7.7, Lymph # (Auto) 1.0, [place] # (Auto) 0.4, Eos # (Auto) 0.0, Baso # (Auto) 0.0 09/08/18 11:30: PT 11.5, INR 1.12 H, APTT 26.5 09/08/18 11:30: Sodium 142, Potassium 4.5 D, Chloride 105, Carbon Dioxide 30, Anion Gap 11.5, BUN 35 H D, Creatinine 1.63 H D, Estimated Creat Clear 59, Estimated GFR 42 L, Est GFR ( Amer) 51 L D, Glucose 232 H, Calcium 8.5 D , Total Bilirubin 0.5, AST 16 D, ALT 23 D, Alkaline Phosphatase 62, Total Creatine Kinase 50, CK-MB (CK-2) 1.1 D, CK-MB (CK-2) Rel Index 2.2, Troponin I < 0.02, Total Protein 7.3, Albumin 3.3 L, Globulin 4.0 H, Albumin/Globulin Ratio 0.8 L, Digoxin 0.37 L, Plasma/Serum Alcohol 0 09/08/18 11:30: Lactate 1.5 09/08/18 11:42: Specimen Source Left radial, O2 % 21, ABG pH 7.50 H, ABG pCO2 31.8 L, ABG pO2 159.6 H, ABG HCO3 24.3, ABG Total CO2 25.3, ABG O2 Saturation 99, ABG Base Excess 1.1, Stewart Test Not applicable 09/08/18 11:44: VBG pH 7.28 L, VBG pCO2 61.2 H, VBG pO2 42.1 H, VBG HCO3 28.4, VBG Total CO2 30.3 H, VBG O2 Saturation 70.6 H, VBG Base Excess 1.7 09/08/18 12:06: POC Glucose 109 09/08/18 13:26: POC Glucose 139 H Result diagrams: 09/08/18 11:30 09/08/18 11:30 Orders (Tests/Meds): ED MEDICATIONS Generic Name Dose Route Start Last Admin Trade Name Freq PRN Reason Stop Dose Admin Dextrose/Sodium Chloride 1,000 mls @ 125 mls/hr 09/08/18 14:45 09/08/18 15:19 Dextrose 5%-0.45% Nacl Iv Soln IV 10/08/18 14:44 125 mls/hr .Q8H TATY Administration Sodium Chloride 10 ml 09/08/18 14:43 Saline Flush 10ml Syringe IV 10/08/18 14:42 NEEDED PRN Maintain IV Site Discontinued Medications Generic Name Dose Route Start Last Admin Trade Name Freq PRN Reason Stop Dose Admin Dextrose 50 ml 09/08/18 11:20 09/08/18 11:30 Dextrose 50% 50ml Syringe IVP 09/08/18 11:21 50 ml ONCE ONE Administration Dextrose 50 ml 09/08/18 12:11 09/08/18 12:16 Dextrose 50% 50ml Syringe IVP 09/08/18 12:12 50 ml ONCE ONE Administration Sodium Chloride 1,000 mls @ 999 mls/hr 09/08/18 11:30 09/08/18 11:30 Sod Chlor 0.9% 1000ml Bag IV 09/08/18 12:30 999 mls/hr .Q1H1M TATY Administration Naloxone HCl 2 mg 09/08/18 11:20 09/08/18 11:30 Narcan 2mg/2ml Syringe IV 09/08/18 11:21 2 mg ONCE ONE Administration ORDERS Category Date Time Status CT abdomen pelvis wo con Stat Cat Scan 09/08/18 11:18 Taken Pelvis XR 1-2 views [XR pelvis 1-2V] Stat Exams 09/08/18 11:18 Taken XR chest portable Stat Exams 09/08/18 11:18 Taken Activated Partial Thrombo Time Stat Lab 09/08/18 14:43 Ordered Ammonia Stat Lab 09/08/18 14:43 Ordered Cardiac Enzymes Stat Lab 09/08/18 14:43 Ordered Complete Blood Count Auto Diff AMLAB Lab 09/09/18 06:00 Ordered Complete Blood Count Auto Diff Stat Lab 09/08/18 14:43 Ordered Comprehensive Metabolic Panel AMLAB Lab 09/09/18 06:00 Ordered Comprehensive Metabolic Panel Stat Lab 09/08/18 14:43 Ordered Drug Screen,Urine Stat Lab 09/08/18 14:43 Ordered Magnesium Stat Lab 09/08/18 14:43 Ordered Prothrombin Time INR Stat Lab 09/08/18 14:43 Ordered Thyroid Stimulating Hormone Stat Lab 09/08/18 14:43 Ordered Troponin I Q6H Lab 09/08/18 20:45 Ordered Troponin I Q6H Lab 09/09/18 02:45 Ordered Urinalysis and Microscopic Stat Lab 09/08/18 11:20 Ordered Blood Culture Stat Micro 09/08/18 11:41 Ordered Arterial Blood Gas Stat RT 09/08/18 11:42 Ordered VBG [Venous Blood Gas] Stat RT 09/08/18 11:44 Ordered ECG Request by /Nse Stat Y 09/08/18 14:43 Ordered - Radiology Data #1 Image(s): Chest Image Reviewed: Yes I reviewed the patient's radiology results, Yes I discussed the image results w/the radiologist, Yes I have reviewed radiologist's interpretation Preliminary Findings: Normal/NAD - CT Data CT Scan: Head, C-Spine Time Received: 15:[address] Reviewed: Yes: I have reviewed the patient's CT results Preliminary Findings: Normal/NAD Altered Mental Status HPI - General Chief Complaint: Altered Mental Status Stated Complaint: altered mental status Time Seen by Provider: 09/08/18 11:17 - History of Present Illness HPI narrative: Pt was found lying on the floor unresponsive by his neighbor and EMS called. At the Scene, his Glucose=25, given D50 and Kpyzvvw=020 and on arrival in the ED, his glucose = 101 and he is still not responsive. His BP and O2 Sats are good but he has sonorous respirations and has bruising all over face and arms. Pt found down 3 times this past Saturday and was brought to the ED then as well but refused admission after he came around. He is also being given another bolus of D50 and IVF's, and checking labs and xrays as well MD complaint: altered mental status, decreased responsiveness Onset (ago): hour(s) Time: 10:30 Timing confirmed by: other (neighbor) Severity: similar to previous episodes Consistency of symptoms: constant Context: history of similar presentation - Related Data Home Medications Medication Instructions Recorded Confirmed RX: Albuterol Sulfate 2 puffs INHALATION Q4HP PRN 11/10/17 09/08/18 [Proventil-HFA 90mcg/puff Inh] RX: Budesonide/Formoterol Fumarate 2 puffs INHALATION BID 11/10/17 09/08/18 [Symbicort 160-4.5 Mcg Inhaler] RX: Metformin HCl [Glucophage 1,000 mg PO BID 11/10/17 09/08/18 500mg Tablet] RX: Carvedilol [Carvedilol 25mg 25 mg PO BID 11/11/17 09/08/18 Tab] RX: Clopidogrel Bisulfate [Plavix 75 mg PO DAILY 05/13/18 09/08/18 75mg Tab] RX: Digoxin 0.0625 mg PO DAILY 05/13/18 09/08/18 RX: Esomeprazole Magnesium 40 mg PO DAILY 05/13/18 09/08/18 RX: Fluticasone Propionate 1 spray NOSTRIL-B DAILY 05/13/18 09/08/18 [Flonase 50mcg nasal spray 16gm] RX: Lisinopril [Lisinopril 20mg 20 mg PO BID 05/13/18 09/08/18 Tab] RX: raNITIdine HCl [Ranitidine HCl] 150 mg PO BID PRN 05/13/18 09/08/18 RX: Gabapentin [Gabapentin 300mg 300 mg PO TID 05/14/18 09/08/18 Cap] RX: Insulin Detemir [Levemir 10 units SQ DAILY 05/14/18 09/08/18 100units/mL 3mL flexpen] RX: Oxycodone HCl/Acetaminophen 1 each PO QID 09/05/18 09/08/18 [Oxycodone W/Apap 325mg Tablet] RX: Gabapentin [Gabapentin 400mg 400 mg PO TID 09/08/18 09/08/18 Cap] Allergies Allergy/AdvReac Type Severity Reaction Status Date / Time diclofenac [From VOLTAREN] Allergy Unknown I-RASH Verified 09/08/18 14:18 rosuvastatin [From CRESTOR] Allergy Unknown I-RASH Verified 09/08/18 14:18 [facility] History I have reviewed the patient's past medical history: Yes Medical History: Reports:: Coronary Artery Disease, Diabetes Mellitus Type 2, Heart Murmur, Hyperlipidemia, MRSA Denies:: Cancer, Diabetes Mellitus Type 1 Other Medical History: Reports: Arthritis (rheumatoid), Hoarseness Laterality Cases: Bilateral: Arthroscopy Shoulder Other Surgeries: Yes: Cardiac Catheterization, Coronary Stent Amputation: No Fractures: No - Social History Smoking Status: Current every day smoker Tobacco Type: cigarettes # Packs/Day (cigarettes): 1 Alcohol Intake: never Occupational Status: retired Housing: apartment Household Members: none Family Hx:: Anemia, Coronary Artery Disease, Diabetes, Heart Attack, Hyperlipidemia, Hypertension ROS Obtained: Yes All systems reviewed & no additional complaints - Constitutional Constitutional: Reports system reviewed and no additional complaints, except as docu, Reports as per HPI - Eyes Eyes: Reports system reviewed and no additional complaints, except as docu, Reports as per HPI, Reports other (bruising around both eyes) - ENT Ears, Nose, Mouth, and Throat: Reports system reviewed and no additional complaints, except as docu, Reports as per HPI - Cardiovascular Cardiovascular: Reports system reviewed and no additional complaints, except as docu, Reports as per HPI - Respiratory Respiratory: Yes system reviewed and no additional complaints, except as docu, Yes as per HPI - Gastrointestinal Gastrointestingal: Reports: system reviewed and no additional complaints, except as docu, as per HPI - Genitourinary Male Genitourinary: Reports system reviewed and no additional complaints, except as docu, Reports as per HPI (and pt incontinent of urine on arrival in the ED) - Musculoskeletal Musculoskeletal: Reports system reviewed and no additional complaints, except as docu, Reports as per HPI - Integumentary/Breasts Skin/Breast: Reports system reviewed and no additional complaints, except as do cu - Neurologic Neurologic: Reports system reviewed and no additional complaints, except as docu, Reports as per HPI, Reports frequent falls, Reports other (unresponsive) - Endocrine Endocrine: Reports system reviewed and no additional complaints, except as docu, Reports as per HPI - Hematologic/Lymphatic Henatologic/Lymphatic: Reports system reviewed and no additional complaints, except as docu, Reports as per HPI, Reports easy bruising Physical Exam - General General appearance: other (unresponsive) - Head Head exam: other (bruising on face and around both eyes) - Eye Eye exam: Present: periorbital swelling - Neck Neck exam: Present: normal inspection - Chest Chest inspection: Present: normal inspection, symmetric chest wall rise - Respiratory Respiratory exam: Present: normal lung sounds bilaterally - Cardiovascular Cardiovascular exam: Present: regular rate - Abdominal Exam Abdominal exam: Present: soft - exam: Present: normal inspection - Extremities Exam Extremities exam: Present: other - Neurological Exam Neurological exam: Present: other (obtunded and not responsive to verbal stimuli....did not attempt any physical stimulus other than putting in gavin catheter and he did not even flinch with that)
[2018-09-08 11:34] LABS: Microscopic, Urine URINE MICROSCOPIC (MICROSCOPIC)
[2018-09-08 11:41] LABS: Appearance,Urine CLEAR (Clear); Bilirubin,Urine Negative (Negative); Blood, Urine Negative (Negative); Color,Urine YELLOW (Yellow); Glucose,Urine (UA) TRACE (Negative); Ketones,Urine Negative (Negative); Leukocyte Esterase,Urine Negative (Negative); Protein,Urine Negative (Negative); Urobilinogen,Urine 0.2 EU/dl (0.2)
[2018-09-08 11:43] LABS: Amphetamine/Metha Screen,Urine Negative ng/mL (<1000); Barbiturates Screen,Urine Negative ng/mL (<200); Benzodiazepines Screen,Urine Negative ng/mL (<200); Cannabinoid Screen,Urine Negative ng/mL (<50); Cocaine Screen,Urine Negative ng/mL (<300); Methadone Screen,Urine Negative ng/mL (<300); Opiate Screen,Urine Positive ng/mL (<300); Phencyclidine Screen,Urine Negative ng/mL (<25)
[2018-09-08 11:47] LABS: Bacteria,Urine Trace /lpf
[2018-09-08 11:58] LABS: VBG Base Excess 1.7 mmol/L (-2.4-2.3); VBG HCO3 28.4 mmol/L (23-30); VBG Oxygen Saturation 70.6 % (50-70); VBG PCO2 61.2 mmol/L (35-51); VBG PH 7.28 mmol/L (7.31-7.41); VBG PO2 42.1 mmol/L (28-40); VBG Total CO2 30.3 mmol/L (23-27)
[2018-09-08 11:58] LABS: Activated Partial Thrombo Time 26.5 seconds (23.6-34.0); INR 1.12 (0.9-1.1); Prothrombin Time 11.5 seconds (9.4-11.8)
[2018-09-08 12:06] LABS: Eosinophils % 0.2 % (0.1-12.0); Hematocrit 35.2 % (42.0-52.0); Hemoglobin 10.8 g/dL (14.1-18.0); Lymphocytes % 11.3 K/mm3 (10-50); Mean Corpuscular HGB Conc 30.6 g/dL (31.8-35.4); Mean Corpuscular Hemoglobin 26.3 pg (27.0-31.2); Mean Corpuscular Volume 85.9 fl (80-94); Mean Platelet Volume 7.6 fl (7.4-10.4); Monocytes % 4.8 % (1.7-9.3); Neutrophils % 83.4 % (37.0-80.0); Platelet Count 362 K/mm3 (142-424); Red Cell Distribution Width 15.3 % (11.5-17.5); White Blood Count 9.2 K/mm3 (4.8-10.8)
[2018-09-08 12:07] LABS: Basophils % 0.2 % (0.1-2.0); Monocytes # 0.4 K/mm3 (0.1-1.0); Neutrophils # 7.7 K/mm3 (1.8-7.8)
[2018-09-08 12:15] LABS: Alanine Aminotransferase 23 U/L (12-78); Albumin Level 3.3 gm/dL (3.4-5.0); Albumin/Globulin Ratio 0.8 (1.1-1.8); Alkaline Phosphatase 62 U/L (46-116); Anion Gap 11.5 mEq/L (5-15); Aspartate Amino Transferase 16 U/L (15-37); Bilirubin,Total 0.5 mg/dL (0.2-1.0); Blood Urea Nitrogen 35 mg/dL (7-18); Carbon Dioxide 30 mmol/L (21.0-32.0); Chloride 105 mmol/L (98-107); Creatine Kinase 50 U/L (39-308); Digoxin 0.37 ng/mL (1.15-2.56); Glucose 232 mg/dL (74-106); Potassium 4.5 mmoL/L (3.5-5.1); Sodium 142 mmol/L (136-145); Total Protein,Serum 7.3 gm/dL (6.4-8.2)
[2018-09-08 12:20] LABS: ABG Base Excess 1.1 mmol/L (-2.4-2.3); ABG HCO3 24.3 mmhg (22.0-26.0); ABG Oxygen Saturation 99 % (90-100); ABG PCO2 31.8 mmhg (35.0-45.0); ABG PO2 159.6 mmhg (80-100); ABG TCO2 25.3 mmhg (23-27)
[2018-09-08 12:20] LABS: Ethyl Alcohol 0 mg/dL (0-99)
[2018-09-08 12:22] LABS: Oxygen 21 %
[2018-09-08 13:12] LABS: Calcium 8.5 mg/dL (8.5-10.1)
--- NOTE | 2018-09-08 15:55 | Progress Note ---
Internal Medicine - PN: Subj Interval history: 72 year old male presented to ER via EMS after found unresponsive by neighbor. Blood glucose was found to be less than 25 and an amp of D50 was given on scene. CT of head showed no acute findings and stable lacunar infarct comparable to Exam Vital signs and Labs for Last 24 Hours: Temp Pulse Resp BP Pulse Ox 99.1 F 93 H 16 164/60 H 93 L 09/08/18 15:38 09/08/18 15:38 09/08/18 15:38 09/08/18 15:38 09/08/18 15:38 Laboratory Results - last 24 hr 09/08/18 11:20: Urine Color Yellow, Urine Appearance Clear, Urine pH 6.0, Ur Specific [place] 1.020, Urine Protein Negative, Urine Glucose (UA) Trace, Urine Ketones Negative, Urine Blood Negative, Urine Nitrate Negative, Urine Bilirubin Negative, Urine Urobilinogen 0.2, Ur Leukocyte Esterase Negative, Urine RBC None, Urine WBC None, Ur Squamous Epith Cells None, Urine Bacteria Trace 09/08/18 11:20: Urine Opiates Screen Positive H, Urine Methadone Screen Negative, Ur Barbituates Screen Negative, Ur Phencyclidine Scrn Negative, Ur Amphetamines Screen Negative, U Benzodiazepines Scrn Negative, Urine Cocaine Screen Negative, U Marijuana (THC) Screen Negative 09/08/18 11:30: WBC 9.2 D, RBC 4.10 L, Hgb 10.8 L, Hct 35.2 L, MCV 85.9, MCH 26.3 L, MCHC 30.6 L, RDW 15.3, Plt Count 362, MPV 7.6, Neut % (Auto) 83.4 H, Lymph % (Auto) 11.3, [place] % (Auto) 4.8, Eos % (Auto) 0.2, Baso % (Auto) 0.2, Neut # (Auto) 7.7, Lymph # (Auto) 1.0, [place] # (Auto) 0.4, Eos # (Auto) 0.0, Baso # (Auto) 0.0 09/08/18 11:30: PT 11.5, INR 1.12 H, APTT 26.5 09/08/18 11:30: Sodium 142, Potassium 4.5 D, Chloride 105, Carbon Dioxide 30, Anion Gap 11.5, BUN 35 H D, Creatinine 1.63 H D, Estimated Creat Clear 59, Tea mated GFR 42 L, Est GFR ( Amer) 51 L D, Glucose 232 H, Calcium 8.5 D, Total Bilirubin 0.5, AST 16 D, ALT 23 D, Alkaline Phosphatase 62, Total Creatine Kinase 50, CK-MB (CK-2) 1.1 D, CK-MB (CK-2) Rel Index 2.2, Troponin I < 0.02, Total Protein 7.3, Albumin 3.3 L, Globulin 4.0 H, Albumin/Globulin Ratio 0.8 L, Digoxin 0.37 L, Plasma/Serum Alcohol 0 09/08/18 11:30: Lactate 1.5 09/08/18 11:42: Specimen Source Left radial, O2 % 21, ABG pH 7.50 H, ABG pCO2 31.8 L, ABG pO2 159.6 H, ABG HCO3 24.3, ABG Total CO2 25.3, ABG O2 Saturation 99, ABG Base Excess 1.1, Stewart Test Not applicable 09/08/18 11:44: VBG pH 7.28 L, VBG pCO2 61.2 H, VBG pO2 42.1 H, VBG HCO3 28.4, VBG Total CO2 30.3 H, VBG O2 Saturation 70.6 H, VBG Base Excess 1.7 09/08/18 12:06: POC Glucose 109 09/08/18 13:26: POC Glucose 139 H I & O for Last 24 hours: Intake & Output 09/05/18 09/06/18 09/07/18 09/08/18 23:59 23:59 23:59 23:59 Intake Total 1250 / 1250 Balance 1250 / 1250 Weight 220 lb
[2018-09-08 16:09] LABS: Basophils % 0.1 % (0.1-2.0); Eosinophils % 0.1 % (0.1-12.0); Hemoglobin 10.8 g/dL (14.1-18.0); Lymphocytes # 0.8 K/mm3 (0.7-4.5); Lymphocytes % 7.7 K/mm3 (10-50); Mean Corpuscular HGB Conc 30.8 g/dL (31.8-35.4); Mean Corpuscular Hemoglobin 25.9 pg (27.0-31.2); Monocytes # 0.4 K/mm3 (0.1-1.0); Monocytes % 3.5 % (1.7-9.3); Neutrophils # 9.5 K/mm3 (1.8-7.8); Neutrophils % 88.6 % (37.0-80.0); Platelet Count 363 K/mm3 (142-424); Red Blood Count 4.16 M/mm3 (4.60-6.20); Red Cell Distribution Width 15.4 % (11.5-17.5); White Blood Count 10.7 K/mm3 (4.8-10.8)
[2018-09-08 16:21] LABS: Activated Partial Thrombo Time 25.6 seconds (23.6-34.0); INR 1.07 (0.9-1.1)
--- NOTE | 2018-09-08 16:56 | History & Physical Report ---
*Admission Date: 09/08/18 <Kelly Whalen 09/08/18 17:02> *Chief complaint: hypoglycemia <Kelly Whalen 09/08/18 17:02> *History of present illness: 72 year old male presented to ER via EMS after found unresponsive by neighbor. Blood glucose less than 25, amp of D50 was given on scene. CT of head showed no acute findings and stable lacunar infarct comparable to May 2018 scan. Narcan 2mg administered in ER. Patient currently in room, opens eyes to painful stimuli and voice. Does not follow any commands. Moans occasionally but no verbal expression. PERRLA. Lung sounds are CTA. SPO2 96%. Cardiac rhythm afib. NIBP adequate. Electrolytes stable. BS normoactive, soft, nontender. with F/C in place. Skin noted to have multiple bruises including left black eye, skin tears, and abrasions. Coccyx with breakdown as well. NATHALIE knox to darryl CHEN. Family in room, plan of care discussed, will follow up in the morning. <Kelly Whalen 09/08/18 17:02> [facility] History Medical History: Reports:: Coronary Artery Disease, Diabetes Mellitus Type 2, Heart Murmur, Hyperlipidemia, MRSA Denies:: Cancer, Diabetes Mellitus Type 1 <Kelly Whalen 09/08/18 17:02> Other Medical History: Reports: Arthritis (rheumatoid), Hoarseness <Kelly Whalen 09/08/18 17:02> Laterality Cases: Bilateral: Arthroscopy Shoulder <Kelly Whalen 09/08/18 17:02> Other Surgeries: Yes: Cardiac Catheterization, Coronary Stent, EGD, Other (PEG tubes x2) <Kelly Whalen 09/08/18 17:02> Amputation: No <Kelly Whalen 09/08/18 17:02> Fractures: No <Kelly Whalen 09/08/18 17:02> - *Social History Educational Level: Completed High School <Kelly Whalen 09/08/18 17:02> Smoking Status: Current every day smoker <Kelly Whalen 09/08/18 17:02> Tobacco Type: cigarettes <Kelly Whalen 09/08/18 17:02> # Packs/Day (cigarettes): 1 <Kelly Whalen 10/29/18 17:02> Alcohol Intake: former <Kelly Whalen 09/08/18 17:02> Occupational Status: retired <Kelly Whalen 09/08/18 17:02> Housing: apartment <Kelly Whalen 09/08/18 17:02> Household Members: none <Kelly Whalen 09/08/18 17:02> - Psychiatric History Expresses thoughts of harming self/others: None <Kelly Whalen 09/08/18 17:02> Suicide Plan Description: No Plan <Kelly Whalen 09/08/18 17:02> *Family Hx:: Anemia, Coronary Artery Disease, Diabetes, Heart Attack, Hyperlipidemia, Hypertension <Klely Whalen 09/08/18 17:02> Review of Systems - *Neurologic Reports frequent falls, Reports other (unresponsive) <Kelly Whalen 09/08/18 17:02> Meds Home Medications Medication Instructions Recorded Confirmed Type RX: Albuterol Sulfate 2 puffs INHALATION Q4HP PRN 11/10/17 09/08/18 History [Proventil-HFA 90mcg/puff Inh] RX: Budesonide/Formoterol Fumarate 2 puffs INHALATION BID 11/10/17 09/08/18 History [Symbicort 160-4.5 Mcg Inhaler] RX: Metformin HCl [Glucophage 1,000 mg PO BID 11/10/17 09/08/18 History 500mg Tablet] RX: Carvedilol [Carvedilol 25mg 25 mg PO BID 11/11/17 09/08/18 History Tab] RX: Clopidogrel Bisulfate [Plavix 75 mg PO DAILY 05/13/18 09/08/18 History 75mg Tab] RX: Digoxin 0.0625 mg PO DAILY 05/13/18 09/08/18 History RX: Esomeprazole Magnesium 40 mg PO DAILY 05/13/18 09/08/18 History RX: Fluticasone Propionate 1 spray NOSTRIL-B DAILY 05/13/18 09/08/18 History [Flonase 50mcg nasal spray 16gm] RX: Lisinopril [Lisinopril 20mg 20 mg PO BID 05/13/18 09/08/18 History Tab] RX: raNITIdine HCl [Ranitidine HCl] 150 mg PO BID PRN 05/13/18 09/08/18 History RX: Insulin Detemir [Levemir 60 units SQ DAILY 05/14/18 09/08/18 History 100units/mL 3mL flexpen] RX: Oxycodone HCl/Acetaminophen 1 each PO QID 09/05/18 09/08/18 History [Oxycodone W/Apap 325mg Tablet] Citalopram Hydrobromide [Celexa] 10 mg PO DAILY 09/08/18 09/08/18 History Fenofibrate Nanocrystallized 145 mg PO DAILY 09/08/18 09/08/18 History [Fenofibrate] Fluticasone/Vilanterol [Breo 1 puff IH DAILY 09/08/18 09/08/18 History Ellipta 100-25 Mcg INH] Insulin Detemir [Levemir 20 units SQ HS 09/08/18 09/08/18 History 100units/mL 3mL flexpen] RX: Gabapentin [Gabapentin 400mg 400 mg PO TID 09/08/18 09/08/18 History Cap] <Emiliano Avila - 09/08/18 17:15> Allergies Allergy/AdvReac Type Severity Reaction Status Date / Time diclofenac [From VOLTAREN] Allergy Unknown I-RASH Verified 09/08/18 14:18 rosuvastatin [From CRESTOR] Allergy Unknown I-RASH Verified 09/08/18 14:18 <Emiliano Avila - 09/08/18 17:15> Exam Vital signs and Labs for Last 24 Hours: Temp Pulse Resp BP Pulse Ox 99.1 F 102 H 24 156/83 H 95 09/08/18 15:38 09/08/18 16:00 09/08/18 16:00 09/08/18 16:00 09/08/18 16:00 Laboratory Results - last 24 hr 09/08/18 11:20: Urine Color Yellow, Urine Appearance Clear, Urine pH 6.0, Ur Specific [place] 1.020, Urine Protein Negative, Urine Glucose (UA) Trace, Urine Ketones Negative, Urine Blood Negative, Urine Nitrate Negative, Urine Bilirubin Negative, Urine Urobilinogen 0.2, Ur Leukocyte Esterase Negative, Urine RBC None, Urine WBC None, Ur Squamous Epith Cells None, Urine Bacteria Trace 09/08/18 11:20: Urine Opiates Screen Positive H, Urine Methadone Screen Negative, Ur Barbituates Screen Negative, Ur Phencyclidine Scrn Negative, Ur Amphetamines Screen Negative, U Benzodiazepines Scrn Negative, Urine Cocaine Screen Negative, U Marijuana (THC) Screen Negative 09/08/18 11:30: WBC 9.2 D, RBC 4.10 L, Hgb 10.8 L, Hct 35.2 L, MCV 85.9, MCH 26.3 L, MCHC 30.6 L, RDW 15.3, Plt Count 362, MPV 7.6, Neut % (Auto) 83.4 H, Lymph % (Auto) 11.3, [place] % (Auto) 4.8, Eos % (Auto) 0.2, Baso % (Auto) 0.2, Neut # (Auto) 7.7, Lymph # (Auto) 1.0, [place] # (Auto) 0.4, Eos # (Auto) 0.0, Baso # (Auto) 0.0 09/08/18 11:30: PT 11.5, INR 1.12 H, APTT 26.5 09/08/18 11:30: Sodium 142, Potassium 4.5 D, Chloride 105, Carbon Dioxide 30, Anion Gap 11.5, BUN 35 H D, Creatinine 1.63 H D, Estimated Creat Clear 59, Estimated GFR 42 L, Est GFR ( Amer) 51 L D, Glucose 232 H, Calcium 8.5 D , Total Bilirubin 0.5, AST 16 D, ALT 23 D, Alkaline Phosphatase 62, Total Creatine Kinase 50, CK-MB (CK-2) 1.1 D, CK-MB (CK-2) Rel Index 2.2, Troponin I < 0.02, Total Protein 7.3, Albumin 3.3 L, Globulin 4.0 H, Albumin/Globulin Ratio 0.8 L, Digoxin 0.37 L, Plasma/Serum Alcohol 0 09/08/18 11:30: Lactate 1.5 09/08/18 11:42: Specimen Source Left radial, O2 % 21, ABG pH 7.50 H, ABG pCO2 31.8 L, ABG pO2 159.6 H, ABG HCO3 24.3, ABG Total CO2 25.3, ABG O2 Saturation 99, ABG Base Excess 1.1, Stewart Test Not applicable 09/08/18 11:44: VBG pH 7.28 L, VBG pCO2 61.2 H, VBG pO2 42.1 H, VBG HCO3 28.4, VBG Total CO2 30.3 H, VBG O2 Saturation 70.6 H, VBG Base Excess 1.7 09/08/18 12:06: POC Glucose 109 09/08/18 13:26: POC Glucose 139 H 09/08/18 15:58: POC Glucose 114 H 09/08/18 16:00: WBC 10.7, RBC 4.16 L, Hgb 10.8 L, Hct 35.0 L, MCV 84.0, MCH 25.9 L, MCHC 30.8 L, RDW 15.4, Plt Count 363, MPV 9.0, Neut % (Auto) 88.6 H, Lymph % (Auto) 7.7 L, [place] % (Auto) 3.5, Eos % (Auto) 0.1, Baso % (Auto) 0.1, Neut # (Auto) 9.5 H, Lymph # (Auto) 0.8, [place] # (Auto) 0.4, Eos # (Auto) 0.0, Baso # (Auto) 0.0, Total Counted 100, Neutrophils % (Manual) 90 H, Lymphocytes % (Manual) 10, Platelet Estimate Normal, Hypochromasia 2+ 09/08/18 16:00: PT 11.0, INR 1.07, APTT 25.6 09/08/18 16:00: Ammonia 17 L <Emiliano Avila - 09/08/18 17:15> Temp Pulse Resp BP Pulse Ox 99.1 F 102 H 24 156/83 H 95 09/08/18 15:38 09/08/18 16:00 09/08/18 16:00 09/08/18 16:00 09/08/18 16:00 Laboratory Results - last 24 hr 09/08/18 11:20: Urine Color Yellow, Urine Appearance Clear, Urine pH 6.0, Ur Specific [place] 1.020, Urine Protein Negative, Urine Glucose (UA) Trace, Urine Ketones Negative, Urine Blood Negative, Urine Nitrate Negative, Urine Bilirubin Negative, Urine Urobilinogen 0.2, Ur Leukocyte Esterase Negative, Urine RBC None, Urine WBC None, Ur Squamous Epith Cells None, Urine Bacteria Trace 09/08/18 11:20: Urine Opiates Screen Positive H, Urine Methadone Screen Negative, Ur Barbituates Screen Negative, Ur Phencyclidine Scrn Negative, Ur Amphetamines Screen Negative, U Benzodiazepines Scrn Negative, Urine Cocaine Screen Negative, U Marijuana (THC) Screen Negative 09/08/18 11:30: WBC 9.2 D, RBC 4.10 L, Hgb 10.8 L, Hct 35.2 L, MCV 85.9, MCH 26.3 L, MCHC 30.6 L, RDW 15.3, Plt Count 362, MPV 7.6, Neut % (Auto) 83.4 H, Lymph % (Auto) 11.3, [place] % (Auto) 4.8, Eos % (Auto) 0.2, Baso % (Auto) 0.2, Neut # (Auto) 7.7, Lymph # (Auto) 1.0, [place] # (Auto) 0.4, Eos # (Auto) 0.0, Baso # (Auto) 0.0 09/08/18 11:30: PT 11.5, INR 1.12 H, APTT 26.5 09/08/18 11:30: Sodium 142, Potassium 4.5 D, Chloride 105, Carbon Dioxide 30, Anion Gap 11.5, BUN 35 H D, Creatinine 1.63 H D, Estimated Creat Clear 59, Estimated GFR 42 L, Est GFR ( Amer) 51 L D, Glucose 232 H, Calcium 8.5 D , Total Bilirubin 0.5, AST 16 D, ALT 23 D, Alkaline Phosphatase 62, Total Creatine Kinase 50, CK-MB (CK-2) 1.1 D, CK-MB (CK-2) Rel Index 2.2, Troponin I < 0.02, Total Protein 7.3, Albumin 3.3 L, Globulin 4.0 H, Albumin/Globulin Ratio 0.8 L, Digoxin 0.37 L, Plasma/Serum Alcohol 0 09/08/18 11:30: Lactate 1.5 09/08/18 11:42: Specimen Source Left radial, O2 % 21, ABG pH 7.50 H, ABG pCO2 31.8 L, ABG pO2 159.6 H, ABG HCO3 24.3, ABG Total CO2 25.3, ABG O2 Saturation 99, ABG Base Excess 1.1, Stewart Test Not applicable 09/08/18 11:44: VBG pH 7.28 L, VBG pCO2 61.2 H, VBG pO2 42.1 H, VBG HCO3 28.4, VBG Total CO2 30.3 H, VBG O2 Saturation 70.6 H, VBG Base Excess 1.7 09/08/18 12:06: POC Glucose 109 09/08/18 13:26: POC Glucose 139 H 09/08/18 15:58: POC Glucose 114 H 09/08/18 16:00: WBC 10.7, RBC 4.16 L, Hgb 10.8 L, Hct 35.0 L, MCV 84.0, MCH 25.9 L, MCHC 30.8 L, RDW 15.4, Plt Count 363, MPV 9.0, Neut % (Auto) 88.6 H, Lymph % (Auto) 7.7 L, [place] % (Auto) 3.5, Eos % (Auto) 0.1, Baso % (Auto) 0.1, Neut # (Auto) 9.5 H, Lymph # (Auto) 0.8, [place] # (Auto) 0.4, Eos # (Auto) 0.0, Baso # (Auto) 0.0 09/08/18 16:00: PT 11.0, INR 1.07, APTT 25.6 09/08/18 16:00: Ammonia 17 L <Kelly Whalen S - 09/08/18 17:02> I & O for Last 24 hours: Intake & Output 09/06/18 09/07/18 09/08/18 09/09/18 11:59 11:59 11:59 11:59 Intake Total 1250 / 1250 Balance 1250 / 1250 Weight 220 lb <Emiliano Avila - 09/08/18 17:15> Intake & Output 09/05/18 09/06/18 09/07/18 09/08/18 23:59 23:59 23:59 23:59 Intake Total 1250 / 1250 Balance 1250 / 1250 Weight 220 lb <Kelly Whalen S - 09/08/18 17:02> - Constitutional no acute distress, obese, obtunded <Kelly Whalen S - 09/08/18 17:02> - *Routine HEENT Exam Head: Present: normocephalic <Kelly Whalen 09/08/18 17:02> Eye: Present: PERRL, periorbital ecchymosis, periorbital swelling <Kelly Whalen 09/08/18 17:02> ENT: Present: mucous membranes moist <Kelly Whalen 09/08/18 17:02> - *Routine Respiratory Exam Present: accessory muscle use <Emiliano Avila 09/08/18 17:14> Present: CTA bilaterally <Kelly Whalen 09/08/18 17:02> Comments: tachypnic <Kelly Whalen 09/08/18 17:02> - *Routine Cardiovascular Exam Present: tachycardia, irregular rhythm <Kelly Whalen 09/08/18 17:02> - *Routine Abdominal Exam Present: soft, normoactive bowel sounds <Kelly Whalen 09/08/18 17:02> - *Routine Skin Exam Comments: The pictures taken by nurses upon skin assessed <Emiliano Avila 09/08/18 17:15> - *Routine Neurological Exam Present: alert, motor deficit, normal reflexes, plantar reflex, hearing grossly intact. Absent: oriented X3, sensory deficit, nystagmus, fasciculations, tremors <Emiliano Avila 09/08/18 17:14> Present: altered mental status <Kelly Whalen 09/08/18 17:02> No purposeful active range of motion of the extremities <Emiliano Avila 09/08/18 17:14> Assessment and Plan (1) Diabetes mellitus Current visit: Yes Status: Acute Category: Medical Code(s): E11.9 - Type 2 diabetes mellitus without complications (2) Hypoglycemia Current visit: No Status: Acute Category: Medical Code(s): E16.2 - Hypoglycemia, unspecified <Kelly Whalen 09/08/18 16:53> (1) Diabetes mellitus Current visit: Yes Status: Acute Category: Medical Code(s): E11.9 - Type 2 diabetes mellitus without complications (2) Hypoglycemia Current visit: No Status: Acute Category: Medical Code(s): E16.2 - Hypoglycemia, unspecified <Emiliano Avila 09/08/18 17:15> - Assessment and plan all Dx Assessment and Plan for all problems:: Patient has been admitted and will be kept on IV fluids with dextrose in them. Blood sugars will be monitored every 2 hours as blood sugar when patient arrived to the floor was 114. At present it would seem that severe and prolonged hypoglycemia is the cause of the patient's hospitalization. He will be monitored for signs of developing infection. Plan will be to repeat imaging of the brain tomorrow if no improvement in patient's condition <Emiliano Avila - 09/08/18 17:14>
[2018-09-08 17:05] LABS: Hypochromasia 2+; Lymphocytes % 10 % (10-50); Neutrophils % 90 % (42-76); Total Cells Counted 100
[2018-09-08 17:39] LABS: Albumin Level 3.3 gm/dL (3.4-5.0); Albumin/Globulin Ratio 0.8 (1.1-1.8); Anion Gap 14.4 mEq/L (5-15); Bilirubin,Total 0.6 mg/dL (0.2-1.0); Calcium 8.7 mg/dL (8.5-10.1); Potassium 3.4 mmoL/L (3.5-5.1); Thyroid Stimulating Hormone 0.36 uIU/ml (0.358-3.740); Total Protein,Serum 7.3 gm/dL (6.4-8.2)
[2018-09-09 06:50] LABS: ABG Base Excess 2.3 mmol/L (-2.4-2.3); ABG HCO3 25.5 mmhg (22.0-26.0); ABG Oxygen Saturation 96 % (90-100); ABG PCO2 33.6 mmhg (35.0-45.0); ABG TCO2 26.5 mmhg (23-27)
[2018-09-09 06:51] LABS: Allen's Test ACCEPTABLE; Oxygen 2LPM %
[2018-09-09 06:54] LABS: Basophils % 0.2 % (0.1-2.0); Eosinophils # 0.1 K/mm3 (0.0-0.4); Eosinophils % 0.5 % (0.1-12.0); Hematocrit 33.3 % (42.0-52.0); Hemoglobin 10.5 g/dL (14.1-18.0); Lymphocytes # 1.9 K/mm3 (0.7-4.5); Lymphocytes % 20.3 K/mm3 (10-50); Mean Corpuscular HGB Conc 31.5 g/dL (31.8-35.4); Mean Corpuscular Hemoglobin 26.6 pg (27.0-31.2); Mean Corpuscular Volume 84.3 fl (80-94); Mean Platelet Volume 8.2 fl (7.4-10.4); Monocytes # 0.6 K/mm3 (0.1-1.0); Neutrophils # 6.6 K/mm3 (1.8-7.8); Platelet Count 335 K/mm3 (142-424); Red Blood Count 3.95 M/mm3 (4.60-6.20); Red Cell Distribution Width 15.9 % (11.5-17.5); White Blood Count 9.1 K/mm3 (4.8-10.8)
[2018-09-09 07:15] LABS: Albumin Level 3.1 gm/dL (3.4-5.0); Albumin/Globulin Ratio 0.8 (1.1-1.8); Anion Gap 12.4 mEq/L (5-15); Bilirubin,Total 0.7 mg/dL (0.2-1.0); Calcium 8.5 mg/dL (8.5-10.1); Globulin 3.9 gm/dl (1.3-3.2); Potassium 3.4 mmoL/L (3.5-5.1)
--- NOTE | 2018-09-09 07:34 | Progress Note ---
Internal Medicine - PN: Subj *Date: 09/09/18 *Time: 07:31 Interval history: Patient had a restless night but did not become any more lucid or alert. NG tube was placed overnight to give patient's medications. He did have a low- grade fever and was given a dose of Rocephin. Sputum was suctioned as patient was unable to clear secretions on his own. Patient would continue to make eye contact when spoken to but made no verbal responses. Sisters are at bedside this morning and did not recall seeing any purposeful movements of the patient's arms or legs. Troponin increased on serial enzymes. A cardiology consultation was placed. Exam Vital signs and Labs for Last 24 Hours: Temp Pulse Resp BP Pulse Ox 98.9 F 83 20 135/64 96 09/09/18 03:00 09/09/18 06:00 09/09/18 06:00 09/09/18 06:00 09/09/18 06:00 Laboratory Results - last 24 hr 09/08/18 11:20: Urine Color Yellow, Urine Appearance Clear, Urine pH 6.0, Ur Specific [place] 1.020, Urine Protein Negative, Urine Glucose (UA) Trace, Urine Ketones Negative, Urine Blood Negative, Urine Nitrate Negative, Urine Bilirubin Negative, Urine Urobilinogen 0.2, Ur Leukocyte Esterase Negative, Urine RBC None, Urine WBC None, Ur Squamous Epith Cells None, Urine Bacteria Trace 09/08/18 11:20: Urine Opiates Screen Positive H, Urine Methadone Screen Negative, Ur Barbituates Screen Negative, Ur Phencyclidine Scrn Negative, Ur Amphetamines Screen Negative, U Benzodiazepines Scrn Negative, Urine Cocaine Screen Negative, U Marijuana (THC) Screen Negative 09/08/18 11:30: WBC 9.2 D, RBC 4.10 L, Hgb 10.8 L, Hct 35.2 L, MCV 85.9, MCH 26.3 L, MCHC 30.6 L, RDW 15.3, Plt Count 362, MPV 7.6, Neut % (Auto) 83.4 H, Lymph % (Auto) 11.3, [place] % (Auto) 4.8, Eos % (Auto) 0.2, Baso % (Auto) 0.2, Neut # (Auto) 7.7, Lymph # (Auto) 1.0, [place] # (Auto) 0.4, Eos # (Auto) 0.0, Baso # (Auto) 0.0 09/08/18 11:30: PT 11.5, INR 1.12 H, APTT 26.5 09/08/18 11:30: Sodium 142, Potassium 4.5 D, Chloride 105, Carbon Dioxide 30, Anion Gap 11.5, BUN 35 H D, Creatinine 1.63 H D, Estimated Creat Clear 59, Estimated GFR 42 L, Est GFR ( Amer) 51 L D, Glucose 232 H, Calcium 8.5 D , Total Bilirubin 0.5, AST 16 D, ALT 23 D, Alkaline Phosphatase 62, Total Creatine Kinase 50, CK-MB (CK-2) 1.1 D, CK-MB (CK-2) Rel Index 2.2, Troponin I < 0.02, Total Protein 7.3, Albumin 3.3 L, Globulin 4.0 H, Albumin/Globulin Ratio 0.8 L, Digoxin 0.37 L, Plasma/Serum Alcohol 0 09/08/18 11:30: Lactate 1.5 09/08/18 11:42: Specimen Source Left radial, O2 % 21, ABG pH 7.50 H, ABG pCO2 31.8 L, ABG pO2 159.6 H, ABG HCO3 24.3, ABG Total CO2 25.3, ABG O2 Saturation 99, ABG Base Excess 1.1, Stewart Test Not applicable 09/08/18 11:44: VBG pH 7.28 L, VBG pCO2 61.2 H, VBG pO2 42.1 H, VBG HCO3 28.4, VBG Total CO2 30.3 H, VBG O2 Saturation 70.6 H, VBG Base Excess 1.7 09/08/18 12:06: POC Glucose 109 09/08/18 13:26: POC Glucose 139 H 09/08/18 15:58: POC Glucose 114 H 09/08/18 16:00: WBC 10.7, RBC 4.16 L, Hgb 10.8 L, Hct 35.0 L, MCV 84.0, MCH 25.9 L, MCHC 30.8 L, RDW 15.4, Plt Count 363, MPV 9.0, Neut % (Auto) 88.6 H, Lymph % (Auto) 7.7 L, [place] % (Auto) 3.5, Eos % (Auto) 0.1, Baso % (Auto) 0.1, Neut # (Auto) 9.5 H, Lymph # (Auto) 0.8, [place] # (Auto) 0.4, Eos # (Auto) 0.0, Baso # (Auto) 0.0, Total Counted 100, Neutrophils % (Manual) 90 H, Lymphocytes % (Manual) 10, Platelet Estimate Normal, Hypochromasia 2+ 09/08/18 16:00: PT 11.0, INR 1.07, APTT 25.6 09/08/18 16:00: Sodium 144, Potassium 3.4 L D, Chloride 107, Carbon Dioxide 26, Anion Gap 14.4, BUN 31 H, Creatinine 1.38 H, Estimated Creat Clear 56, Estimated GFR 51 L, Est GFR ( Amer) 61, Glucose 105 D, Calcium 8.7, Magnesium 1.6, Total Bilirubin 0.6, AST 24 D, ALT 24, Alkaline Phosphatase 62, Total Creatine Kinase 66, CK-MB (CK-2) 1.8 D, CK-MB (CK-2) Rel Index 2.7, Troponin I 0.34 H, Total Protein 7.3, Albumin 3.3 L, Globulin 4.0 H, Albumin/Globulin Ratio 0.8 L, TSH 0.36 09/08/18 16:00: Ammonia 17 L 09/08/18 17:44: POC Glucose 109 09/08/18 20:04: POC Glucose 126 H 09/08/18 20:45: Troponin I 1.83 H 09/08/18 23:36: POC Glucose 141 H 09/09/18 00:32: Troponin I 3.03 H 09/09/18 01:48: POC Glucose 190 H 09/09/18 03:30: Troponin I 3.40 H 09/09/18 03:52: POC Glucose 221 H 09/09/18 05:43: POC Glucose 218 H 09/09/18 06:00: Specimen Source R radial, O2 % 2lpm, ABG pH 7.50 H, ABG pCO2 33.6 L, ABG pO2 76.0 L, ABG HCO3 25.5, ABG Total CO2 26.5, ABG O2 Saturation 96, ABG Base Excess 2.3, Stewart Test Acceptable 09/09/18 06:20: WBC 9.1, RBC 3.95 L, Hgb 10.5 L, Hct 33.3 L, MCV 84.3, MCH 26.6 L, MCHC 31.5 L, RDW 15.9, Plt Count 335, MPV 8.2, Neut % (Auto) 72.0, Lymph % (Auto) 20.3, [place] % (Auto) 7.0, Eos % (Auto) 0.5, Baso % (Auto) 0.2, Neut # (Auto) 6.6, Lymph # (Auto) 1.9, [place] # (Auto) 0.6, Eos # (Auto) 0.1, Baso # (Auto) 0.0 09/09/18 06:20: Sodium 141, Potassium 3.4 L, Chloride 105, Carbon Dioxide 27, Anion Gap 12.4, BUN 19 H D, Creatinine 1.09 D, Estimated Creat Clear 71, Estimated GFR 67, Est GFR ( Amer) 81 D, Glucose 236 H D, Calcium 8.5, Total Bilirubin 0.7, AST 31 D, ALT 22, Alkaline Phosphatase 64, Total Protein 7.0, Albumin 3.1 L, Globulin 3.9 H, Albumin/Globulin Ratio 0.8 L 09/09/18 06:20: Troponin I 3.27 H I & O for Last 24 hours: Intake & Output 09/06/18 09/07/18 09/08/18 09/09/18 11:59 11:59 11:59 11:59 Intake Total 3073 / 3073 Output Total 1050 / 1050 Balance 2022 / 2022 Weight 220 lb 178 lb 1.6 oz Microbiology Reports for the Last 24 Hours: Microbiology 09/08/18 20:00 Sputum - Expectorated Sputum Sputum Culture - Preliminary Narrative: Patient appears comfortable in bed. Pupils are reactive with right being larger than the left pupil. Oropharynx is dry. An NG tube in the right nare. Lungs have transmitted upper airway sounds but no focal rales or rhonchi. Heart rate is irregular. Abdomen is soft. Skin exam has multiple bruises over the extremities as well as a bruise on the upper mid chest. Patient is sleeping soundly and does not respond to verbal stimulus. The left arm and left leg are slightly more rigid when put through passive flexion and extension at the elbow, wrist, knee, ankle. Toes are upgoing on Babinski testing. Assessment and Plan (1) Altered level of consciousness Current visit: Yes Status: Acute Category: Medical Code(s): R40.4 - Transient alteration of awareness (2) Diabetes mellitus Current visit: Yes Status: Acute Category: Medical Code(s): E11.9 - Type 2 diabetes mellitus without complications (3) Hypoglycemia Current visit: No Status: Acute Category: Medical Code(s): E16.2 - Hypo glycemia, unspecified (4) Elevated troponin Current visit: Yes Status: Acute Category: Medical Code(s): R74.8 - Abnormal levels of other serum enzymes (5) Multiple falls Current visit: No Status: Acute Category: Medical Code(s): R29.6 - Repeated falls - Assessment and plan all Dx Assessment and Plan for all problems:: At this point despite correction of hypoglycemia there appears to be very little change in patient's overall condition. Sputum culture has been collected and he will be given Rocephin intravenously. This morning an echocardiogram will be ordered due to the increased troponin. EEG will be ordered as well as repeat CT scan of the brain with and without contrast to assess for any possible ischemic changes that did not show up on initial CT scan yesterday morning. I do not think patient would be today for MRI due to his inability to lay perfectly still for the required time.
--- NOTE | 2018-09-09 08:18 | Pharmacy Consult Notes ---
[facility] Pharmacy VTE Monitoring - Patient Demographics Admission date: 09/08/18 Report Date: 09/09/18 Time: 08:16 Allergies/Adverse Reactions: Patient Allergies diclofenac [From VOLTAREN] Allergy (Unknown, Verified 09/08/18 14:18) I-RASH rosuvastatin [From CRESTOR] Allergy (Unknown, Verified 09/08/18 14:18) I-RASH Height: 1.75 m Weight: 80.785 kg Patient Problems: Current Active Problems Altered mental status (Acute) Diabetes mellitus (Acute) Elevated troponin (Acute) Altered level of consciousness (Acute) - VTE Risk Labs: VTE Related Lab Results Hgb 10.5 g/dL (14.1-18.0) L 09/09/18 06:20 Hct 33.3 % (42.0-52.0) L 09/09/18 06:20 Plt Count 335 K/mm3 (142-424) 09/09/18 06:20 PT 11.0 seconds (9.4-11.8) 09/08/18 16:00 INR 1.07 (0.9-1.1) 09/08/18 16:00 APTT 25.6 seconds (23.6-34.0) 09/08/18 16:00 BUN 19 mg/dL (7-18) H D 09/09/18 06:20 Creatinine 1.09 mg/dL (0.70-1.30) D 09/09/18 06:20 Estimated Creat Clear 71 mL/min (0-300) 09/09/18 06:20 Was VTE Risk Assessment Performed: Yes VTE Score: 4 VTE Risk Level: Low Risk Clinical Trial Participant: No - Prophylaxis VTE Prophylaxis Ordered?: Yes Types of VTE Prophylaxis: TEDS Knee High Location of Applied Device: Bilateral Lower Extremeties
--- NOTE | 2018-09-09 08:38 | Consult Report ---
History of Present Illness Consult date: 09/09/18 Requesting physician: Emiliano Avila Chief complaint: Elevated troponins Additional Medical History:: 1. Coronary artery disease A. History of bare-metal stent to mid LAD approximately 2007 B. History of cardiac catheterization in 2012 with [id number] coronary artery disease noted and patent LAD stent. Ejection fraction 40-45%. 2. Cardiomyopathy A. Echocardiogram 2016 showing ejection fraction 40-45% without regional wall motion abnormality or significant valvular heart disease. 3. History of tobacco use 4. Diabetes mellitus, treated long-term with insulin 5. History of previous CVA October, with extensive rehab therapy A. Residual difficulty swallowing prompting placement of feeding tube B. On plavix therapy 6. Dysphasia with reported history of esophageal stricture 7. Hyperlipidemia History of present illness: 72 year old male presented to ER via EMS after found unresponsive by neighbor. Blood glucose less than 25, amp of D50 was given on scene. CT of head showed no acute findings and stable lacunar infarct comparable to May 2018 scan. Narcan 2mg administered in ER. Patient currently in room, opens eyes to painful stimuli and voice. Does not follow any commands. Moans occasionally but no verbal expression. PERRLA. Lung sounds are CTA. SPO2 96%. Cardiac rhythm afib. NIBP adequate. Electrolytes stable. BS normoactive, soft, nontender. with F/C in place. Skin noted to have multiple bruises including left black eye, skin tears, and abrasions. Coccyx with breakdown as well. NATHALIE knox to darryl LE. The above per Kelly Whalen APRN for Dr. Avila Two of the patient's sisters are in the room with him this a.m. Patient has had an prolonged recovery from a stroke in October 2017. He has been living by himself recently at his own insistence, but his sisters feel that he has had difficulty in doing so. He has difficulty swallowing due to esophageal stricture (pt was scheduled for EGD and possible esophageal dilatation next week) and previous stroke and does not eat as he should despite taking his insulin as directed. Events of last week are noted above. Patient has fallen several times in the last week with ecchymosis of the left eye and left jaw noted. Patient is unable to provide any history at this time but he keeps his eyes closed and moans repeatedly. Cardiology has been consulted for elevated troponins. Review of telemetry shows sinus rhythm with frequent ectopy including PACs and PVCs. Question of atrial fibrillation also. [facility] History Medical History: Reports:: Coronary Artery Disease, Diabetes Mellitus Type 2, Heart Murmur, Hyperlipidemia, MRSA Denies:: Cancer, Diabetes Mellitus Type 1 Other Medical History: Reports: Arthritis (rheumatoid), Hoarseness Laterality Cases: Bilateral: Arthroscopy Shoulder Other Surgeries: Yes: Cardiac Catheterization, Coronary Stent, EGD, Other (PEG tubes x2) Amputation: No Fractures: No - *Social History Educational Level: Completed High School Smoking Status: Current every day smoker Tobacco Type: cigarettes # Packs/Day (cigarettes): 1 Alcohol Intake: former Occupational Status: retired Housing: apartment Household Members: none - Psychiatric History Expresses thoughts of harming self/others: None Suicide Plan Description: No Plan *Family Hx:: Anemia, Coronary Artery Disease, Diabetes, Heart Attack, Hyperlipidemia, Hypertension Meds Home Medications Medication Instructions Recorded Confirmed Type Albuterol Sulfate [Proventil-HFA 2 puffs INHALATION Q4HP PRN 11/10/17 09/08/18 History 90mcg/puff Inh] Budesonide/Formoterol Fumarate 2 puffs INHALATION BID 11/10/17 09/08/18 History [Symbicort 160-4.5 Mcg Inhaler] Metformin HCl [Glucophage 500mg 1,000 mg PO BID 11/10/17 09/08/18 History Tablet] Carvedilol [Carvedilol 25mg Tab] 25 mg PO BID 11/11/17 09/08/18 History Clopidogrel Bisulfate [Plavix 75mg 75 mg PO DAILY 05/13/18 09/08/18 History Tab] Digoxin 0.0625 mg PO DAILY 05/13/18 09/08/18 History Esomeprazole Magnesium 40 mg PO DAILY 05/13/18 09/08/18 History Fluticasone Propionate [Flonase 1 spray NOSTRIL-B DAILY 05/13/18 09/08/18 History 50mcg nasal spray 16gm] Lisinopril [Lisinopril 20mg Tab] 20 mg PO BID 05/13/18 09/08/18 History raNITIdine HCl [Ranitidine HCl] 150 mg PO BID PRN 05/13/18 09/08/18 History Insulin Detemir [Levemir 60 units SQ DAILY 05/14/18 09/08/18 History 100units/mL 3mL flexpen] Oxycodone HCl/Acetaminophen 1 each PO QID 09/05/18 09/08/18 History [Oxycodone W/Apap 325mg Tablet] Citalopram Hydrobromide [Celexa] 10 mg PO DAILY 09/08/18 09/08/18 History Fenofibrate Nanocrystallized 145 mg PO DAILY 09/08/18 09/08/18 History [Fenofibrate] Fluticasone/Vilanterol [Breo 1 puff IH DAILY 09/08/18 09/08/18 History Ellipta 100-25 Mcg INH] Gabapentin [Gabapentin 400mg Cap] 400 mg PO TID 09/08/18 09/08/18 History Insulin Detemir [Levemir 20 units SQ HS 09/08/18 09/08/18 History 100units/mL 3mL flexpen] Allergies Allergy/AdvReac Type Severity Reaction Status Date / Time diclofenac [From VOLTAREN] Allergy Unknown I-RASH Verified 09/08/18 14:18 rosuvastatin [From CRESTOR] Allergy Unknown I-RASH Verified 09/08/18 14:18 Review of Systems - Review of Systems Review of systems:: unable to obtain - *Neurologic Reports frequent falls, Reports other (unresponsive) Exam Vital signs and Labs for Last 24 Hours: Temp Pulse Resp BP Pulse Ox 98.9 F 83 20 135/64 96 09/09/18 03:00 09/09/18 06:00 09/09/18 06:00 09/09/18 06:00 09/09/18 06:00 Laboratory Results - last 24 hr 09/08/18 11:20: Urine Color Yellow, Urine Appearance Clear, Urine pH 6.0, Ur Specific [place] 1.020, Urine Protein Negative, Urine Glucose (UA) Trace, Urine Ketones Negative, Urine Blood Negative, Urine Nitrate Negative, Urine Bilirubin Negative, Urine Urobilinogen 0.2, Ur Leukocyte Esterase Negative, Urine RBC None, Urine WBC None, Ur Squamous Epith Cells None, Urine Bacteria Trace 09/08/18 11:20: Urine Opiates Screen Positive H, Urine Methadone Screen Negative, Ur Barbituates Screen Negative, Ur Phencyclidine Scrn Negative, Ur Amphetamines Screen Negative, U Benzodiazepines Scrn Negative, Urine Cocaine Screen Negative, U Marijuana (THC) Screen Negative 09/08/18 11:30: WBC 9.2 D, RBC 4.10 L, Hgb 10.8 L, Hct 35.2 L, MCV 85.9, MCH 26.3 L, MCHC 30.6 L, RDW 15.3, Plt Count 362, MPV 7.6, Neut % (Auto) 83.4 H, Lymph % (Auto) 11.3, [place] % (Auto) 4.8, Eos % (Auto) 0.2, Baso % (Auto) 0.2, Neut # (Auto) 7.7, Lymph # (Auto) 1.0, [place] # (Auto) 0.4, Eos # (Auto) 0.0, Baso # (Auto) 0.0 09/08/18 11:30: PT 11.5, INR 1.12 H, APTT 26.5 09/08/18 11:30: Sodium 142, Potassium 4.5 D, Chloride 105, Carbon Dioxide 30, Anion Gap 11.5, BUN 35 H D, Creatinine 1.63 H D, Estimated Creat Clear 59, Estimated GFR 42 L, Est GFR ( Amer) 51 L D, Glucose 232 H, Calcium 8.5 D , Total Bilirubin 0.5, AST 16 D, ALT 23 D, Alkaline Phosphatase 62, Total Creatine Kinase 50, CK-MB (CK-2) 1.1 D, CK-MB (CK-2) Rel Index 2.2, Troponin I < 0.02, Total Protein 7.3, Albumin 3.3 L, Globulin 4.0 H, Albumin/Globulin Ratio 0.8 L, Digoxin 0.37 L, Plasma/Serum Alcohol 0 09/08/18 11:30: Lactate 1.5 09/08/18 11:42: Specimen Source Left radial, O2 % 21, ABG pH 7.50 H, ABG pCO2 31.8 L, ABG pO2 159.6 H, ABG HCO3 24.3, ABG Total CO2 25.3, ABG O2 Saturation 99, ABG Base Excess 1.1, Stewart Test Not applicable 09/08/18 11:44: VBG pH 7.28 L, VBG pCO2 61.2 H, VBG pO2 42.1 H, VBG HCO3 28.4, VBG Total CO2 30.3 H, VBG O2 Saturation 70.6 H, VBG Base Excess 1.7 09/08/18 12:06: POC Glucose 109 09/08/18 13:26: POC Glucose 139 H 09/08/18 15:58: POC Glucose 114 H 09/08/18 16:00: WBC 10.7, RBC 4.16 L, Hgb 10.8 L, Hct 35.0 L, MCV 84.0, MCH 25.9 L, MCHC 30.8 L, RDW 15.4, Plt Count 363, MPV 9.0, Neut % (Auto) 88.6 H, Lymph % (Auto) 7.7 L, [place] % (Auto) 3.5, Eos % (Auto) 0.1, Baso % (Auto) 0.1, Neut # (Auto) 9.5 H, Lymph # (Auto) 0.8, [place] # (Auto) 0.4, Eos # (Auto) 0.0, Baso # (Auto) 0.0, Total Counted 100, Neutrophils % (Manual) 90 H, Lymphocytes % (Manual) 10, Platelet Estimate Normal, Hypochromasia 2+ 09/08/18 16:00: PT 11.0, INR 1.07, APTT 25.6 09/08/18 16:00: Sodium 144, Potassium 3.4 L D, Chloride 107, Carbon Dioxide 26, Anion Gap 14.4, BUN 31 H, Creatinine 1.38 H, Estimated Creat Clear 56, Estimated GFR 51 L, Est GFR ( Amer) 61, Glucose 105 D, Calcium 8.7, Magnesium 1.6, Total Bilirubin 0.6, AST 24 D, ALT 24, Alkaline Phosphatase 62, Total Creatine Kinase 66, CK-MB (CK-2) 1.8 D, CK-MB (CK-2) Rel Index 2.7, Troponin I 0.34 H, Total Protein 7.3, Albumin 3.3 L, Globulin 4.0 H, Albumin/Globulin Ratio 0.8 L, TSH 0.36 09/08/18 16:00: Ammonia 17 L 09/08/18 17:44: POC Glucose 109 09/08/18 20:04: POC Glucose 126 H 09/08/18 20:45: Troponin I 1.83 H 09/08/18 23:36: POC Glucose 141 H 09/09/18 00:32: Troponin I 3.03 H 09/09/18 01:48: POC Glucose 190 H 09/09/18 03:30: Troponin I 3.40 H 09/09/18 03:52: POC Glucose 221 H 09/09/18 05:43: POC Glucose 218 H 09/09/18 06:00: Specimen Source R radial, O2 % 2lpm, ABG pH 7.50 H, ABG pCO2 33.6 L, ABG pO2 76.0 L, ABG HCO3 25.5, ABG Total CO2 26.5, ABG O2 Saturation 96, ABG Base Excess 2.3, Stewart Test Acceptable 09/09/18 06:20: WBC 9.1, RBC 3.95 L, Hgb 10.5 L, Hct 33.3 L, MCV 84.3, MCH 26.6 L, MCHC 31.5 L, RDW 15.9, Plt Count 335, MPV 8.2, Neut % (Auto) 72.0, Lymph % (Auto) 20.3, [place] % (Auto) 7.0, Eos % (Auto) 0.5, Baso % (Auto) 0.2, Neut # (Auto) 6.6, Lymph # (Auto) 1.9, [place] # (Auto) 0.6, Eos # (Auto) 0.1, Baso # (Auto) 0.0 09/09/18 06:20: Sodium 141, Potassium 3.4 L, Chloride 105, Carbon Dioxide 27, Anion Gap 12.4, BUN 19 H D, Creatinine 1.09 D, Estimated Creat Clear 71, Estimated GFR 67, Est GFR ( Amer) 81 D, Glucose 236 H D, Calcium 8.5, Total Bilirubin 0.7, AST 31 D, ALT 22, Alkaline Phosphatase 64, Total Protein 7.0, Albumin 3.1 L, Globulin 3.9 H, Albumin/Globulin Ratio 0.8 L 09/09/18 06:20: Troponin I 3.27 H I & O for Last 24 hours: Intake & Output 09/06/18 09/07/18 09/08/18 09/09/18 11:59 11:59 11:59 11:59 Intake Total 3073 / 3073 Output Total 1050 / 1050 Balance 2022 Weight 220 lb 178 lb 1.6 oz Microbiology Reports for the Last 24 Hours: Microbiology 09/08/18 20:00 Sputum - Expectorated Sputum Gram Stain - Final - *Routine Neck Exam Present: supple. Absent: JVD, carotid bruit Comments: Unable to adequately assess due to upper airway congestion and moaning. - *Routine Respiratory Exam Present: decreased breath sounds, rhonchi, diminished air movement. Absent: accessory muscle use, rales, wheezes - *Routine Cardiovascular Exam Present: RRR, murmur. Absent: gallop, rubs Comments: Frequent ectopy noted. - *Routine Abdominal Exam Present: soft. Absent: tenderness, distended, guarding - *Routine Extremities Exam Absent: edema, calf tenderness - *Routine Neurological Exam Present: altered mental status, moving all extremities. Absent: alert Assessment and Plan (1) Altered level of consciousness Current visit: Yes Status: Acute Category: Medical Code(s): R40.4 - Transient alteration of awareness (2) Diabetes mellitus Current visit: Yes Status: Acute Category: Medical Code(s): E11.9 - Type 2 diabetes mellitus without complications (3) Hypoglycemia Current visit: No Status: Acute Category: Medical Code(s): E16.2 - Hypoglycemia, unspecified (4) Elevated troponin Current visit: Yes Status: Acute Category: Medical Code(s): R74.8 - Abnormal levels of other serum enzymes (5) Multiple falls Current visit: No Status: Acute Category: Medical Code(s): R29.6 - Repeated falls - Assessment and plan all Dx Assessment and Plan for all problems:: 1. Elevated troponins of concern for recurrent obstructive CAD but may be related to prolonged hypogylcemia. 2. Discussed with sisters regarding course of treatment options. With the patient essentially noncommunicative and unable to cooperate for procedures, treatment options are limited to medical therapy. They expressed concerns that this type of event was coming and that they were okay with conservative therapy, however other siblings were not available at this time to discuss this option. 3. Continue current medications including Coreg, Plavix, lisinopril and digoxin. 4. Further recommendations to follow pending results of echocardiogram.
--- NOTE | 2018-09-09 21:59 | Cardiology Report ---
PROCEDURE: Limited 2-D echocardiogram INDICATIONS FOR THE TEST: Chest pain COPD Heart Murmur Tobacco Smoking+ Palpitations Fatigue Syncope Edema Hypertension+Diabetes Mellitus+ Rheumatic Fever SOB LEON Obesity Hyperlipidemia+ Family History HD Additional History CAD, [place], [place], CVA, PT INCOHERENT, UNABLE TO COOPERATE, PT UP IN BED, FLAT ON BACK, LIMITED EXAM PATIENT INFORMATION HEIGHT: 69 WEIGHT:178 GENDER: Male B/P:156/82 2-D/M-MODE INTERPRETATION: 2-D MEASUREMENTS OBSERVED VALUES IN CMS Right Ventricular Dimension (RVDd) 1.6 Interventricular Septum (Thickness)(IVsd) 5.3 Left Ventricular Internal Dimensions(LVIDd) 1.1 Left Ventricular Posterior Wall (Thickness)(LVPWd) 2.6 Aortic Root 3.6 Aortic Cusp Separation 1.6 Left Atrial Dimensions (LAD) 4.0 2D 1. Left atrium is mildly enlarged, left ventricle is normal size, mild concentric left ventricular hypertrophy, visually estimated ejection fraction approximately 30%, there is marked hypokinesis involving mid to distal septum, anterior and anteroapical wall. 2. The right atrium and right ventricle are normal size and contractility. 3. The aortic valve is not well visualized. 4. The mitral and tricuspid valve leaflets are minimally thickened. 5. The pulmonic valve is poorly visualized. 6. No significant pericardial effusion noted. DOPPLER INTERROGATION: Doppler interrogation of the aortic, mitral and tricuspid valvular presence of mild mitral and tricuspid regurgitation, tricuspid regurgitation jet velocity is inadequate for calculation of the right ventricular systolic pressure, Doppler evidence of impaired relaxation seen, there was no tissue Doppler or aortic out flow velocity recorded study. CONCLUSION: 1. Technically difficult and limited study 2. Mildly enlarged left atrium, normal left ventricular size, mild concentric left ventricular hypertrophy, reduced left ventricular systolic function, visually estimated ejection fraction 30% with multiple segmental wall motion abnormality described above, Doppler evidence of impaired relaxation, there was no tissue Doppler performed. 3. The aortic valve is not well visualized. 4. Mild mitral and tricuspid regurgitation 5. No significant pericardial effusion
[2018-09-10 05:55] LABS: Basophils % 0.4 % (0.1-2.0); Eosinophils # 0.1 K/mm3 (0.0-0.4); Eosinophils % 1.4 % (0.1-12.0); Hematocrit 34.4 % (42.0-52.0); Hemoglobin 10.7 g/dL (14.1-18.0); Lymphocytes # 1.9 K/mm3 (0.7-4.5); Lymphocytes % 23.9 K/mm3 (10-50); Mean Corpuscular HGB Conc 31.1 g/dL (31.8-35.4); Mean Corpuscular Hemoglobin 26.7 pg (27.0-31.2); Mean Corpuscular Volume 85.6 fl (80-94); Mean Platelet Volume 7.8 fl (7.4-10.4); Monocytes # 0.6 K/mm3 (0.1-1.0); Monocytes % 8.1 % (1.7-9.3); Neutrophils # 5.2 K/mm3 (1.8-7.8); Neutrophils % 66.3 % (37.0-80.0); Platelet Count 304 K/mm3 (142-424); Red Blood Count 4.02 M/mm3 (4.60-6.20); White Blood Count 7.9 K/mm3 (4.8-10.8)
[2018-09-10 06:01] LABS: Anion Gap 11.3 mEq/L (5-15); Calcium 8.9 mg/dL (8.5-10.1); Potassium 3.3 mmoL/L (3.5-5.1)
--- NOTE | 2018-09-10 07:48 | Progress Note ---
Internal Medicine - PN: Subj *Date: 09/10/18 *Time: 07:43 Interval history: Patient condition has improved minimally. Patient will open his eyes and make eye contact with vocal stimulus. Family members are in the room and patient has responded a little better to them this morning per their report. Patient is able to communicate some. I did explain to the patient that I did not think he would get better without a source of nutrition and medications, i.e. placement of PEG tube. Patient declines this option. He has had a PEG tube twice within the last year, both times it has become dislodged although family believes the patient tries to remove it on his own. Family is present when patient confirms that he does not want a PEG tube Exam Vital signs and Labs for Last 24 Hours: Temp Pulse Resp BP Pulse Ox 99.1 F 96 H 18 152/83 H 96 09/10/18 04:00 09/10/18 06:00 09/10/18 06:00 09/10/18 06:00 09/10/18 06:00 Laboratory Results - last 24 hr 09/09/18 09:33: POC Glucose 205 H 09/09/18 11:15: POC Glucose 177 H 09/09/18 13:14: POC Glucose 182 H 09/09/18 15:06: POC Glucose 165 H 09/09/18 20:35: POC Glucose 201 H 09/10/18 03:11: POC Glucose 203 H 09/10/18 05:12: WBC 7.9, RBC 4.02 L, Hgb 10.7 L, Hct 34.4 L, MCV 85.6, MCH 26.7 L, MCHC 31.1 L, RDW 16.0, Plt Count 304, MPV 7.8, Neut % (Auto) 66.3, Lymph % (Auto) 23.9, [place] % (Auto) 8.1, Eos % (Auto) 1.4, Baso % (Auto) 0.4, Neut # (Auto) 5.2, Lymph # (Auto) 1.9, [place] # (Auto) 0.6, Eos # (Auto) 0.1, Baso # (Auto) 0.0 09/10/18 05:12: Sodium 142, Potassium 3.3 L, Chloride 106, Carbon Dioxide 28, Anion Gap 11.3, BUN 13 D, Creatinine 0.85 D, Estimated Creat Clear 74, Estimated GFR 89, Est GFR ( Amer) 108 D, Glucose 215 H, Calcium 8.9 I & O for Last 24 hours: Intake & Output 09/07/18 09/08/18 09/09/18 09/10/18 11:59 11:59 11:59 11:59 Intake Total 3073 / 3073 1266 / 1266 Output Total 1050 / 1050 1700 / 1700 Balance 2022 / 2022 -434 / -434 Weight 220 lb 178 lb 1.6 oz 170 lb 7 oz Microbiology Reports for the Last 24 Hours: Microbiology 09/08/18 20:00 Sputum - Expectorated Sputum Gram Stain - Final Narrative: Patient awakens to vocal stimulus. He will make eye contact. He does smile at me this morning. He makes attempts to speak but speech comes out as moaning sounds. Lungs have some faint rhonchi. Heart has a irregularly irregular rate and rhythm. Abdomen is soft and nontender. 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 He is able to wiggle his toes on command. He does have intact motor function in the left leg. Assessment and Plan (1) Metabolic encephalopathy Current visit: Yes Status: Acute Category: Medical Code(s): G93.41 - Metabolic encephalopathy (2) Altered level of consciousness Current visit: Yes Status: Acute Category: Medical Code(s): R40.4 - Transient alteration of awareness (3) Diabetes mellitus Current visit: Yes Status: Acute Category: Medical Code(s): E11.9 - Type 2 diabetes mellitus without complications (4) Hypoglycemia Current visit: No Status: Acute Category: Medical Code(s): E16.2 - Hypoglycemia, unspecified (5) Elevated troponin Current visit: Yes Status: Acute Category: Medical Code(s): R74.8 - Abnormal levels of other serum enzymes (6) Multiple falls Current visit: No Status: Acute Category: Medical Code(s): R29.6 - Repeated falls (7) Takotsubo cardiomyopathy Current visit: Yes Status: Acute Category: Medical Code(s): I51.81 - Takotsubo syndrome (8) NSTEMI (non-ST elevated myocardial infarction) Current visit: Yes Status: Acute Category: Medical Code(s): I21.4 - Non-ST elevation (NSTEMI) myocardial infarction - Assessment and plan all Dx Assessment and Plan for all problems:: Patient has declined PEG tube. Attempts to place an NG have been unsuccessful and he did develop a nosebleed which required nasal packing. I do not believe the patient will survive without PEG tube. This was explained to the patient and I do believe he understands. Family was at bedside and they understand and believe patient is competent in making this decision. We will consult hospice. Hold p.o. medications. Continue IV fluids until evaluation by hospice. Patient is likely candidate for hospice care center
--- NOTE | 2018-09-10 07:55 | Discharge Summary ---
General - General Admission date:: 09/08/18 Discharge date: 09/10/18 HPI HPI: 72 year old male presented to ER via EMS after found unresponsive by neighbor. Blood glucose less than 25, amp of D50 was given on scene. CT of head showed no acute findings and stable lacunar infarct comparable to May 2018 scan. Narcan 2mg administered in ER. Patient currently in room, opens eyes to painful stimuli and voice. Does not follow any commands. Moans occasionally but no verbal expression. PERRLA. Lung sounds are CTA. SPO2 96%. Cardiac rhythm afib. NIBP adequate. Electrolytes stable. BS normoactive, soft, nontender. with F/C in place. Skin noted to have multiple bruises including left black eye, skin tears, and abrasions. Coccyx with breakdown as well. NATHALIE knox to darryl CHEN. Family in room, plan of care discussed, will follow up in the morning. Hospital Course Hospital Course: Patient was admitted with depressed level of consciousness. He was started on D5 half-normal saline due to his hypoglycemia. Within a few hours of hospitalization blood sugar stabilized in the mid 100s to low 200s. He was continued on D5 half-normal saline during the rest of his hospitalization. Once hypoglycemia was corrected it did not recur. Hypoglycemic agents were held. Patient did develop mild hypokalemia and potassium was added to his fluids. Patient is depressed level of consciousness improved minimally over 48-hour time span. During that time an EEG was performed as well as repeat CT scan of the head with and without contrast searching for possible new infarct. EEG showed global decrease activity of the brain consistent with a metabolic, toxic, and anoxic encephalopathy. CT scan did not show any new stroke. Serial cardiac enzymes were performed on the patient. Troponin elevated to the level of 3.2. On the morning of September 09 echocardiogram was performed which showed ejection fraction of 30%. I believe the patient's found hypoglycemia likely led to non-ST elevation SC and Takotsubo's cardiomyopathy. Cardiology was consulted and recommended medical management Due to the patient's encephalopathy and history of prior stroke with significant dysphasia the patient was going to need a route of administration for medications and nutrition. NG tube was initially placed. However the patient began gagging and ultimately dislodged the NG tube. The NG tube also rubbed an ulcer in the right nasal septum causing a nosebleed. Bleeding drained posteriorly increasing cough and secretions. NG tube was removed. Multiple attempts were made to reinsert NG tube which were unsuccessful. Patient has had a PEG tube twice in the last year due to his strokes. Both times his PEG tubes have become dislodged at home and family has strongly suspected patient removing them on his own. A long discussion was had with the family on September 09 in regards to a PEG tube being the best chance patient had a recovery so he could be administered medications and nutrition. On the morning of the the patient had become awake and alert enough to communicate that he did not want a PEG tube reinserted. Family was present during this conversation and they were all in agreement. It was explained to the patient that he would without a route of nutrition. Patient acknowledged that he understood. Hospice was consulted. After hospice evaluation patient was felt appropriate for hospice care center and was transferred to the hospice care center on September 10, 2018 Objective Vital signs: Temp Pulse Resp BP Pulse Ox 99.1 F 96 H 18 152/83 H 96 09/10/18 04:00 09/10/18 06:00 09/10/18 06:00 09/10/18 06:00 09/10/18 06:00 Results Labs on day of discharge: Labs from last 24 hours 09/10/18 09/10/18 09/10/18 05:12 05:12 03:11 WBC 7.9 RBC 4.02 L Hgb 10.7 L Hct 34.4 L MCV 85.6 MCH 26.7 L MCHC 31.1 L RDW 16.0 Plt Count 304 MPV 7.8 Neut % (Auto) 66.3 Lymph % (Auto) 23.9 Anderson % (Auto) 8.1 Eos % (Auto) 1.4 Baso % (Auto) 0.4 Neut # (Auto) 5.2 Lymph # (Auto) 1.9 Anderson # (Auto) 0.6 Eos # (Auto) 0.1 Baso # (Auto) 0.0 Sodium 142 Potassium 3.3 L Chloride 106 Carbon Dioxide 28 Anion Gap 11.3 BUN 13 D Creatinine 0.85 D Estimated Creat Clear 74 Estimated GFR 89 Est GFR ( Amer) 108 D Glucose 215 H POC Glucose 203 H Calcium 8.9 09/09/18 09/09/18 09/09/18 20:35 15:06 13:14 WBC RBC Hgb Hct MCV MCH MCHC RDW Plt Count MPV Neut % (Auto) Lymph % (Auto) Anderson % (Auto) Eos % (Auto) Baso % (Auto) Neut # (Auto) Lymph # (Auto) Anderson # (Auto) Eos # (Auto) Baso # (Auto) Sodium Potassium Chloride Carbon Dioxide Anion Gap BUN Creatinine Estimated Creat Clear Estimated GFR Est GFR ( Amer) Glucose POC Glucose 201 H 165 H 182 H Calcium 09/09/18 09/09/18 11:15 09:33 WBC RBC Hgb Hct MCV MCH MCHC RDW Plt Count MPV Neut % (Auto) Lymph % (Auto) Anderson % (Auto) Eos % (Auto) Baso % (Auto) Neut # (Auto) Lymph # (Auto) Anderson # (Auto) Eos # (Auto) Baso # (Auto) Sodium Potassium Chloride Carbon Dioxide Anion Gap BUN Creatinine Estimated Creat Clear Estimated GFR Est GFR ( Amer) Glucose POC Glucose 177 H 205 H Calcium DS: Diagnosis - Discharge Diagnosis (1) Metabolic encephalopathy Status: Acute (2) Altered level of consciousness Status: Acute (3) Diabetes mellitus Status: Acute (4) Hypoglycemia Status: Acute (5) Elevated troponin Status: Acute (6) Multiple falls Status: Acute (7) Takotsubo cardiomyopathy Status: Acute (8) NSTEMI (non-ST elevated myocardial infarction) Status: Acute Discharge Plan - Patient Discharge Instructions ACTIVITY: Continue current activity DIET: NPO Patient Instructions: DI for Heart Attack, Type 2 Diabetes, Cardiomyopathy, DI for Altered Mental Status - Follow up Plan Follow up with: Emiliano Avila MD [Primary Care Provider] - Disposition: Hospice - Medical Facility Home Medications: Home Medications Medication Instructions Recorded Confirmed Type RX: Albuterol Sulfate 2 puffs INHALATION Q4HP PRN 11/10/17 09/09/18 History [Proventil-HFA 90mcg/puff Inh] RX: Budesonide/Formoterol Fumarate 2 puffs INHALATION BID 11/10/17 09/09/18 History [Symbicort 160-4.5 Mcg Inhaler] RX: Metformin HCl [Glucophage 1,000 mg PO BID 11/10/17 09/09/18 History 500mg Tablet] RX: Carvedilol [Carvedilol 25mg 25 mg PO BID 11/11/17 09/09/18 History Tab] RX: Clopidogrel Bisulfate [Plavix 75 mg PO DAILY 05/13/18 09/09/18 History 75mg Tab] RX: Digoxin 0.0625 mg PO DAILY 05/13/18 09/09/18 History RX: Esomeprazole Magnesium 40 mg PO DAILY 05/13/18 09/09/18 History RX: Fluticasone Propionate 1 spray NOSTRIL-B DAILY 05/13/18 09/09/18 History [Flonase 50mcg nasal spray 16gm] RX: Lisinopril [Lisinopril 20mg 20 mg PO BID 05/13/18 09/09/18 History Tab] RX: raNITIdine HCl [Ranitidine HCl] 150 mg PO BID PRN 05/13/18 09/09/18 History RX: Insulin Detemir [Levemir 60 units SQ DAILY 05/14/18 09/09/18 History 100units/mL 3mL flexpen] RX: Oxycodone HCl/Acetaminophen 1 each PO QID 09/05/18 09/09/18 History [Oxycodone W/Apap 325mg Tablet] RX: Citalopram Hydrobromide 10 mg PO DAILY 09/08/18 09/09/18 History [Celexa] RX: Fenofibrate Nanocrystallized 145 mg PO DAILY 09/08/18 09/09/18 History [Fenofibrate] RX: Fluticasone/Vilanterol [Breo 1 puff IH DAILY 09/08/18 09/09/18 History Ellipta 100-25 Mcg INH] RX: Gabapentin [Gabapentin 400mg 400 mg PO TID 09/08/18 09/09/18 History Cap] RX: Insulin Detemir [Levemir 20 units SQ HS 09/08/18 09/09/18 History 100units/mL 3mL flexpen] Prescriptions/Medication Reconciliation: Continue RX: Budesonide/Formoterol Fumarate [Symbicort 160-4.5 Mcg Inhaler] 2 puffs INHALATION BID RX: Metformin HCl [Glucophage 500mg Tablet] 1,000 mg PO BID RX: Carvedilol [Carvedilol 25mg Tab] 25 mg PO BID RX: Digoxin 0.0625 mg PO DAILY RX: Esomeprazole Magnesium 40 mg PO DAILY RX: Lisinopril [Lisinopril 20mg Tab] 20 mg PO BID RX: raNITIdine HCl [Ranitidine HCl] 150 mg PO BID PRN PRN Reason: GERD RX: Insulin Detemir [Levemir 100units/mL 3mL flexpen] 60 units SQ DAILY RX: Oxycodone HCl/Acetaminophen [Oxycodone W/Apap 325mg Tablet] 1 each PO QID RX: Gabapentin [Gabapentin 400mg Cap] 400 mg PO TID RX: Insulin Detemir [Levemir 100units/mL 3mL flexpen] 20 units SQ HS RX: Fluticasone/Vilanterol [Breo Ellipta 100-25 Mcg INH] 1 puff IH DAILY RX: Fenofibrate Nanocrystallized [Fenofibrate] 145 mg PO DAILY RX: Citalopram Hydrobromide [Celexa] 10 mg PO DAILY RX: Albuterol Sulfate [Proventil-HFA 90mcg/puff Inh] 2 puffs INHALATION Q4HP PRN PRN Reason: Shortness Of Breath RX: Fluticasone Propionate [Flonase 50mcg nasal spray 16gm] 1 spray NOSTRIL-B DAILY RX: Clopidogrel Bisulfate [Plavix 75mg Tab] 75 mg PO DAILY
== END 2018-09-10 14:32 | disposition hospice, inpatient (51) ==
LOC: ER 11:49 → 2ND 13:59
PROVIDERS: ADMIT Family Medicine; ATTEND Family Medicine